=== PATIENT | female | born 1945 | race Caucasian/White ===

== ENCOUNTER → 2016-03-25 | Outpatient (CLI) | payer OTHER ==
[~2016-03-25] MED LIST: AMT50 PO; ASCO10003 PO; CALC-214; CETI10TA99; CHOL1CAP57 PO; CLR10 PO; FLUT0.15 NAE; GABA-113 PO; GADAVIST IV PRN; IPRA0.03; MOME1AER5 INH; MONT1TAB3 PO; MONT4GRA; MULTTAB58 PO; OMEG10007 PO; TAMO20TA47 PO; VITACAP37 PO
--- NOTE | 2016-03-25 15:29 | DIAGNOSTIC IMAGING REPORT ---
LEFT KNEE MRI with and without intravenous contrast HISTORY: Left peroneal nerve compression at fibular head. Pain down left foot. Twitching. Left KNEE, SOFT TISSUE MASS COMPARISON STUDY: None. TECHNIQUE: Multiplanar multisequence MRI of the left knee was performed according to standard department protocol without intravenous contrast. FINDINGS: Menisci: The lateral meniscus is intact. There is a horizontal tear through the body of the medial meniscus. Ligaments: The anterior and posterior cruciate ligaments are intact. The medial and lateral collateral ligaments are normal in appearance. Extensor mechanism: The quadriceps tendon and patellar ligament are intact. Articular cartilage and bone: Focal full-thickness cartilage loss along the inferior aspect of the lateral patellar facet and median ridge with associated subchondral cystic change. Mild cartilage thinning within the medial femoral condyle. No fracture or dislocation within the knee. Joint effusion: None. Soft tissues: No soft tissue masses identified. Specifically, there are no masses at the level of the fibular head. The visualized common peroneal nerve is normal in course, caliber, and signal intensity. Small focus of subcutaneous edema lateral to the level of the fibular head. No abnormal enhancement. IMPRESSION: 1. No masses within the left knee. Specifically, there are no masses compressing the common peroneal nerve. 2. Horizontal tear at the body of the medial meniscus. 3. Patellar chondromalacia as described above. Electronically signed by: Tavares Briones M.D. 03/25/2016 3:27 PM Dictated Date/Time: 03/25/2016 3:22 PM
== END | disposition home or self-care (01) ==
LOC: C.MRI 12:45
PROVIDERS: ATTEND Physical Medicine & Rehabilitation
DX: G57.32 Lesion of lateral popliteal nerve, left lower limb (principal); S83.242A Other tear of medial meniscus, current injury, left knee, initial encounter; X58.XXXA Exposure to other specified factors, initial encounter; M22.42 Chondromalacia patellae, left knee

== ENCOUNTER → 2016-03-29 | Outpatient (CLI) | payer OTHER ==
[~2016-03-29] MED LIST changes: -GADAVIST IV PRN
[2016-03-29 11:02] LABS: BASO % 0.5 %; BASO ABS # 0.03 K/uL (0-0.2); COMPLETE YES; EOS % 6.9 %; HEMATOCRIT 38.2 % (37-47); IG% 0.2 %; LYMPH % 38.3 %; LYMPH ABS # 2.33 K/uL (1.2-3.4); MEAN CELL VOLUME 91.4 fL (80-100); MEAN CORPUSCULAR HEMOGLOBIN 31.1 pg (25-34); MEAN PLATELET VOLUME 9.4 fL (7.4-10.4); MONO % 8.1 %; PLATELET COUNT 346 K/uL (130-400); RED BLOOD COUNT 4.18 M/uL (4.2-5.4); WHITE BLOOD COUNT 6.08 K/uL (4.8-10.8)
[2016-03-29 11:19] LABS: AST/SGOT 26 U/L (15-37); BLOOD UREA NITROGEN 15 mg/dl (7-18); CALCIUM 8.8 mg/dl (8.5-10.1); CARBON DIOXIDE 28 mmol/L (21-32); CHLORIDE 106 mmol/L (98-107); CHOLESTEROL 212 mg/dl (0-200); CREATININE 0.75 mg/dl (0.60-1.20); GLUCOSE 89 mg/dl (70-99); POTASSIUM 3.9 mmol/L (3.5-5.1); SODIUM 142 mmol/L (136-145)
[2016-03-29 11:27] LABS: ALKALINE PHOSPHATASE 42 U/L (45-117); ALT/SGPT 33 U/L (12-78); CHOLESTEROL/HDL RATIO 2.2; HDL CHOLESTEROL 97 mg/dl; LDL CHOLESTEROL CALCULATED 101 mg/dl; TRIGLYCERIDES 70 mg/dl (0-150); VERY LOW DENSITY LIPOPROT CALC 14 mg/dl
--- NOTE | 2016-04-02 11:03 | CODING QUERY MEDICAL NECESSITY ---
SUPPORTING DIAGNOSIS NEEDED Dr. Faustin, A supporting diagnosis is required for the test/procedure performed on this patient in order for us to be reimbursed by the patient's insurance. Please provide a supporting diagnosis for the following test/procedure listed below next to the test name along with your signature. *If there is no additional diagnosis for this patient that would support the following test/procedure please document that below next to the test/procedure. Test(s)/Procedure(s) that require a supporting diagnosis: * ([id number]) VITAMIN D ASSAY DIAGNOSIS: DATE OF SERVICE: 03/29/16 Provider Signature: Date: Thank you Rory Sandoval [facility] Information Management Once completed, please kindly fax back to [phone] For questions please call [phone]
== END | disposition home or self-care (01) ==
LOC: C.LABBC 07:37
PROVIDERS: ATTEND Internal Medicine
DX: R91.1 Solitary pulmonary nodule (principal)

== ENCOUNTER → 2016-04-18 | Outpatient (CLI) | payer OTHER ==
--- NOTE | 2016-04-18 16:07 | DIAGNOSTIC IMAGING REPORT ---
MRI OF THE LUMBAR SPINE WITHOUT IV CONTRAST CLINICAL HISTORY: Left leg pain. Radiculopathy. COMPARISON STUDY: No priors. TECHNIQUE: MRI of the lumbar spine is performed utilizing various T1 and T2 sequences in the axial and sagittal planes. IV contrast was not administered for this examination. FINDINGS: Lumbar spine: Vertebral body height is maintained throughout the lumbar spine. Minimal retrolisthesis is noted at L3-L4. Alignment is otherwise preserved. There is straightening of the lumbar lordosis. Marrow signal intensity is heterogeneous. A small hemangioma is suspected in the body of L4. The transverse and spinous processes are grossly intact. There is no evidence of spondylolysis. Small anterior osteophytes are seen throughout. Chronic degenerative endplate change is present at most levels. Degenerative endplate edema is seen at L3-L4 and L4-L5. Intervertebral discs: Moderate degenerative disc desiccation and loss of height is seen throughout the lumbar spine. Spinal cord: The visualized spinal cord is normal in morphology and signal intensity. The conus medullaris terminates at the level of L1. The nerve roots of the cauda equina are normal in morphology. L1-L2: There is minimal posterior disc bulge. The central canal and neural foramina are patent. L2-L3: There is posterior disc bulge. There is no significant acquired compromise of the central canal. Facet arthropathy causes mild left-sided neural foraminal stenosis. L3-L4: There is posterior disc bulge. In conjunction with hypertrophy of the ligamentum flavum, there is minimal acquired compromise of the central canal. The minimum AP canal diameter measures up to 10 mm. There is bilateral subarticular stenosis, left greater than right. This may impinge on the exiting left L3 nerve root. Facet arthropathy causes minimal left-sided neural foraminal narrowing. L4-L5: There is posterior disc bulge. No significant central canal stenosis is seen at this level. There is bilateral subarticular stenosis, with possible impingement on the exiting bilateral L4 nerve roots. This also likely abuts the transiting bilateral L5 nerve roots. Facet arthropathy is of no consequence. There is a left-sided facet joint effusion. L5-S1: The central canal is patent. Facet arthropathy causes mild bilateral neural foraminal stenosis. Sacrum: Visualized sacrum is normal in morphology and signal intensity. Soft tissues: There is mild fatty atrophy of the paraspinous musculature. The partially imaged retroperitoneal structures are grossly unremarkable, but incompletely assessed. IMPRESSION: 1. Degenerative disc disease as above with degenerative endplate edema at L3-L4 and L4-L5. 2. Multilevel lumbosacral spondylosis as detailed above. There is only minimal acquired compromise of the central canal at L3-L4. See discussion for detailed level by level analysis. 3. No destructive bony lesion is suspected. Dictated: 04/18/2016 3:44 PM Transcribed: 04/18/2016 4:06 PM EDITH_Ori Electronically signed by: Jean Pierre Bauman M.D. 04/18/2016 4:10 PM Dictated Date/Time: 04/18/2016 3:44 PM
== END | disposition home or self-care (01) ==
LOC: C.MRIBC 14:50
PROVIDERS: ATTEND Physical Medicine & Rehabilitation
DX: G57.32 Lesion of lateral popliteal nerve, left lower limb (principal); M51.36 Other intervertebral disc degeneration, lumbar region; M47.817 Spondylosis without myelopathy or radiculopathy, lumbosacral region

== ENCOUNTER → 2016-08-16 | Outpatient (CLI) | payer OTHER ==
[~2016-08-16] MED LIST changes: -AMT50 PO; -CETI10TA99; -CLR10 PO; -MONT4GRA
--- NOTE | 2016-08-16 09:02 | DIAGNOSTIC IMAGING REPORT ---
(CHEST) THORAX WITHOUT HISTORY:71 [id number] Pulmonary nodule,. History of right breast cancer. COMPARISON: Chest CT 10/18/2015, CT 07/31/2012, 06/09/2012 TECHNIQUE: Multiple axial CT images of the chest were obtained without contrast. FINDINGS: No focal dominant thyroid nodule. No pathologic adenopathy about the chest is identified. The heart appears unremarkable. There is no pneumothorax, pleural effusion or new focal airspace consolidation. There is minimal subsegmental atelectasis/scarring of the right lung base. Subtle focal 7 x 6 mm groundglass nodule of the anterior segment right upper lobe is again seen on image 16 of the axial series, which in retrospect is unchanged dating back to 06/09/2012. No new or suspicious solid or subsolid pulmonary nodules are identified. Central airways are patent. The upper abdominal structures appear unremarkable. The soft tissues are within normal limits. No suspicious bony lesions identified. IMPRESSION: 1. Unchanged sub-solid pulmonary nodule of the anterior segment right upper lobe, 7 mm. In retrospect, this is unchanged dating back to CT study dated 06/09/2012. According to the Fleischner guidelines below, additional follow-up exam in one year will confirm stability over a five-year period. 2. No additional new or suspicious pulmonary nodules. 3. No adenopathy. Please refer to below summary of Fleischner criteria recommendations for follow-up of incidental CT nodules (Mert Magdaleno, Guidelines for management of small pulmonary nodules detected on CT scans: A statement from the Fleischner Society, Radiology 237: [phone].) Note: newly detected indeterminate nodule in persons 35 years of age or older. * Low risk patients: minimal or absent history of smoking and/or other known risk factors * high risk patients: history of smoking or of other known risk factors (e.g. first degree relative with lung cancer, or exposure to asbestos, radon, uranium) * if a nodule up to 8 mm is partly solid or is ground glass further follow-up is required after 24 months to exclude possible slow growing adenocarcinoma (SHARDA) SUBSOLID NODULES Solitary pure ground-glass nodule * nodule size <6 mm - no CT follow-up required * nodule size >=6 mm - follow-up CT at 6-12 months, then every 2 years until 5 years The above report was generated using voice recognition software. It may contain grammatical, syntax or spelling errors. Electronically signed by: Josh Fairbanks 08/16/2016 9:01 AM Dictated Date/Time: 08/16/2016 8:52 AM
== END | disposition home or self-care (01) ==
LOC: C.CTS 08:38
PROVIDERS: ATTEND Internal Medicine Critical Care Medicine
DX: R91.1 Solitary pulmonary nodule (principal)

== ENCOUNTER → 2017-03-29 | Outpatient (CLI) | payer OTHER ==
[~2017-03-29] MED LIST changes: -TAMO20TA47 PO; +TAMO20TA9 PO
[2017-03-29 09:02] LABS: BASO % 0.7 %; BASO ABS # 0.03 K/uL (0-0.2); EOS % 6.2 %; EOS ABS # 0.27 K/uL (0-0.5); HEMATOCRIT 37.4 % (37-47); HEMOGLOBIN 12.6 g/dL (12.0-16.0); IG# 0.01 K/uL (0.00-0.02); LYMPH % 47.2 %; LYMPH ABS # 2.06 K/uL (1.2-3.4); MEAN CORPUSCULAR HEMOGLOBIN 31.3 pg (25-34); MEAN CORPUSCULAR HGB CONC 33.7 g/dl (32-36); MEAN PLATELET VOLUME 9.5 fL (7.4-10.4); MONO % 10.8 %; MONO ABS # 0.47 K/uL (0.11-0.59); NEUT % 34.9 %; NEUT ABS # 1.52 K/uL (1.4-6.5); PLATELET COUNT 272 K/uL (130-400); RED CELL DISTRIBUTION WIDTH CV 13.9 % (11.5-14.5); RED CELL DISTRIBUTION WIDTH SD 47.6 fL (36.4-46.3); WHITE BLOOD COUNT 4.36 K/uL (4.8-10.8)
[2017-03-29 09:41] LABS: ALBUMIN 3.6 gm/dl (3.4-5.0); ALT/SGPT 39 U/L (12-78); AST/SGOT 28 U/L (15-37); BLOOD UREA NITROGEN 15 mg/dl (7-18); CALCIUM 8.6 mg/dl (8.5-10.1); CARBON DIOXIDE 30 mmol/L (21-32); CHOLESTEROL 190 mg/dl (0-200); CREATININE 0.74 mg/dl (0.60-1.20); GLUCOSE 83 mg/dl (70-99); POTASSIUM 3.9 mmol/L (3.5-5.1); SODIUM 143 mmol/L (136-145)
[2017-03-29 09:49] LABS: ALKALINE PHOSPHATASE 40 U/L (45-117); LDL CHOLESTEROL CALCULATED 93 mg/dl
== END | disposition home or self-care (01) ==
LOC: C.LAB 08:10
PROVIDERS: ATTEND Internal Medicine
DX: M85.80 Other specified disorders of bone density and structure, unspecified site (principal); D72.819 Decreased white blood cell count, unspecified; C50.219 Malignant neoplasm of upper-inner quadrant of unspecified female breast; R91.1 Solitary pulmonary nodule; E55.9 Vitamin D deficiency, unspecified

== ENCOUNTER → 2017-04-07 | Outpatient (CLI) | payer OTHER ==
--- NOTE | 2017-04-07 16:10 | DIAGNOSTIC IMAGING REPORT ---
(CHEST) THORAX WITHOUT CLINICAL HISTORY: Pulmonary nodule COMPARISON STUDY: 08/16/2016 CT DOSE: 211.94 mGy.cm TECHNIQUE: CT of the thorax was performed from the thoracic inlet to the lung bases. Images are reviewed in the axial, sagittal, and coronal planes. IV contrast was not administered for this examination. A dose lowering technique was utilized adhering to the principles of ALARA. FINDINGS: Thyroid: Imaged portions of the thyroid gland are normal in appearance. Thoracic aorta: The thoracic aorta is normal in course and caliber, noting standard 3 vessel arch anatomy. Heart: The heart is normal in size and configuration, without pericardial effusion. Lungs and pleural spaces: No pleural effusions are visualized. There is a stable 7 mm groundglass right upper lobe pulmonary nodule as visualized in image #[id number]. Also evident is a stable 3 mm mixed solid and groundglass left apical pulmonary nodule as visualized on image #[id number] Mediastinum: There is no mediastinal lymphadenopathy. Uyen: Clear. Axilla: Clear. Upper abdomen: Partially visualized upper abdominal viscera is within normal limits. Skeletal structures: There are no lytic or blastic osseous lesions. IMPRESSION: 1. Stable 7 mm groundglass right upper lobe pulmonary nodule 2. No evidence of pathologic adenopathy Electronically signed by: Omid Martines M.D. 04/07/2017 4:09 PM Dictated Date/Time: 04/07/2017 4:05 PM
== END | disposition home or self-care (01) ==
LOC: C.CTS 15:55
PROVIDERS: ATTEND Internal Medicine
DX: R91.1 Solitary pulmonary nodule (principal)

== ENCOUNTER → 2017-04-17 | Outpatient (CLI) | payer OTHER | END | disposition home or self-care (01) | LOC: C.PAPS 14:20 | PROVIDERS: ATTEND Obstetrics & Gynecology | DX: Z01.419 Encounter for gynecological examination (general) (routine) without abnormal findings (principal) ==

== ENCOUNTER 2022-07-18 22:29 | Inpatient (IN) ==
[2022-07-18] MEDS ORDERED: SODIUM CHLORIDE 0.9% 500 ML IV STA (22:44)
[2022-07-18] MEDS ORDERED: ONDANSETRON INJ 2 MG/ML 2 ML VIAL IV STA (22:44)
--- NOTE | 2022-07-18 22:46 | Emergency Department Note ---
Impression & Plan SBO (small bowel obstruction) ADMIT ED Provider Note HPI: The patient is a 76-year-old female who presents emergency department chief complaint of nausea and vomiting as well as abdominal pain that began around 4 PM today. Patient states she went out to lunch with a friend at the [employer], states that she had a positive and then began to feel nauseous later after lunch. She states she has had multiple episodes of vomiting throughout the afternoon since this started, denies any diarrhea, patient denies any chest pain or shortness of breath. Patient states she did have an EGD performed about a week ago that was remarkable for gastritis but otherwise was uncomplicated, she states she had this done because she felt as if she was having some issues swallowing her food. On arrival here to the ED the patient is alert, she seems to be in mild distress secondary to nausea but otherwise is hemodynamically stable and saturating well on room air. ROS: - Per HPI *Outpatient medications and allergy history reviewed. *Pertinent external medical records reviewed. PE: General: Alert HEENT: Normocephalic, trachea midline Eyes: Extraocular eye movement is intact, no scleral erythema Pulmonary: Clear to auscultation bilaterally, no wheezing Cardio: Regular rate and rhythm GI: Abdomen is soft to palpation, there is moderate tenderness diffusely to palpation : No suprapubic tenderness MSK: No evidence of trauma or malformation of the extremities, no edema Skin: No evidence of rash Neuro: Alert, no focal deficits Psychiatric: Cooperative monitor and storage bin tender: (As interpreted by myself): - An order was placed for continuous cardiac monitoring - Patient was noted to be in sinus rhythm with a rate of 90 EKG: (As interpreted by myself): Rate: 97 Rhythm: Normal sinus rhythm Intervals: QTc 510, otherwise within normal limits ST changes: No ST elevation Time: 2254 Interventions provided in ED: -IV fluid bolus, IV morphine, IV Zofran, IV Reglan, IV Benadryl Differential Diagnosis: Viral gastroenteritis, small bowel obstruction, acute cholecystitis, acute appendicitis, diverticulitis flare, perforated viscus, amongst other potential pathologies. Medical Decision Making: Patient presented to the emergency department with abdominal pain as well as nausea and vomiting that began at around 4 PM today. On arrival here to the ED the patient is hemodynamically stable but does appear to be in mild distress secondary to abdominal discomfort and nausea. IV was established and lab work obtained, patient was given IV fluids as well as IV Zofran, IV Reglan, IV Benadryl, and IV morphine for pain. Lab work shows no leukocytosis, hemoglobin is stable at 13.6, platelet count is within normal limits at 301, CMP was obtained that does show evidence of reduced serum bicarbonate level at 17, potassium is within normal limits, no acute kidney injury, no transaminitis, bilirubin is normal, troponin is also negative. EKG shows normal sinus rhythm without any ischemic changes. CT imaging of the abdomen pelvis was obtained with IV contrast that shows evidence of small bowel obstruction with transition point somewhere in the right upper quadrant/ileum following my discussion with on-call radiology, Dr. Workman. Given that the patient has had frequent nausea with dry heaving decision was made to place NG tube. NG tube was placed by bedside RN, x-ray imaging obtained following NG tube placement and NG tube does appear to be in appropriate position in the stomach (per my interpretation). Case was discussed with on-call general surgery, Dr. Garner, via [place] [facility]. He is in agreement for admission here and consultation to evaluate the patient in the morning given her hemodynamic stability. [facility] hospitalist service was consulted for admission, Dr. Woodard aware. Case was also discussed with the on-call resident. Patient was placed for admission in stable condition. Consultants: - Dr. Garner, General Surgery - Dr. Woodard, Hospitalist Disposition discussion held by myself with: Patient and daughter at the bedside Diagnosis: 1. Small bowel obstruction, acute 2. Nausea and vomiting, acute 3. Metabolic acidosis/dehydration Disposition: Admission Tony Hendrix DO Emergency Medicine Past Med/Surg History Medical History (Updated 07/19/22 @ 01:45 by Tony Hendrix DO) Acute solar dermatitis Allergic rhinitis Alveolar emphysema of lung DAILY AND PRN INH Chronic cough Colon polyps HX Complaints of leg weakness UNDER CONTROL-ON GABAPENTIN COPD with emphysema Dysphagia "VERY OCCASIONAL" ETD (eustachian tube dysfunction) High serum high density lipoprotein (HDL) History of COVID-19 BEGINNING 04/2022, HOME TEST, NOT HOSP; MILD>RESOLVED. History of right breast cancer diagnosed 2013--sx/radiation Leukopenia Low back pain Malignant neoplasm of upper-inner quadrant of female breast RT BREAST 2013; LEFT BREAST 2021 Multiple pulmonary nodules Osteopenia after menopause Pain of lower extremity UNDER CONTROL W/GABAPENTING Post-nasal drip Pulmonary nodule, right Seasonal allergies Spinal stenosis Upper airway cough syndrome Vitamin D deficiency Surgical History (Updated 06/24/22 @ 11:38 by Libra Chang) History of bronchoscopy History of colonoscopy with polypectomy History of lumpectomy of left breast 2021; SX AND 1 MONTH OF RADIATION History of lumpectomy of right breast History of tooth extraction History of tubal ligation History of wisdom tooth extraction Family History Mother Bone cancer Parkinson disease Multiple myeloma Aunt Breast cancer Sister Breast cancer History of thyroid disorder Pancreatic cancer Daughter Bipolar disorder Father Family history of diabetes mellitus Grandmother (Maternal) Family history of esophageal cancer Brother Prostate cancer Lung cancer Sister Cancer Brother Cancer Other Asthma Diabetes No family history of adverse response to anesthesia No family history of bleeding disorder Denies family history of Tuberculosis Ovarian cancer Heart disease Allergies Myocardial infarction Emphysema, unspecified Colorectal cancer Lung disease Stroke Social History Smoking Status: Former smoker Tobacco Type: Cigarettes Age Quit Using Tobacco: 27; Cigarettes Per Day: 3; Second Hand Exposure: Yes (HX IN THE WORKPLACE); Do You Dip or Chew Tobacco: No; Hx Alcohol Use: Yes Alcohol type: hard liquor Alcohol Intake Frequency: 4 or More x per/Week Alcohol Intake Frequency Comment: every day Hx Substance Use: No Preferred Language: Haitian Communication Ability: Effective Visual Impairment: Limited Hearing Ability: Normal Crushed Stone Grader Required: No Beliefs That Will Affect Care: None marital status: Current Living Situation: Spouse current occupational status: retired How many Children do You have: 2 Feels Safe at Home: Yes Childhood Exposure to Second-Hand Smoke: No Diet: regular caffeine: Yes (tea ) during the past year weight has: remained stable Dental Care, Regularly: Yes Physical Activity Frequency: 5-6 Times per Week Seatbelt Use: always Sunscreen Use: Yes Assistive Devices: None Allergies Allergies Allergy/AdvReac Type Severity Reaction Status Date / Time benzonatate Allergy Severe Difficulty Verified 07/01/22 10:28 swallowing phenylephrine Allergy Mild Nausea Verified 07/01/22 10:28 codeine [From Robitussin A-C] Allergy Unknown Unknown Verified 07/01/22 10:28 phenylpropanolamine Allergy Unknown Unknown Verified 07/01/22 10:28 [From Lynette GONZALEZ] house dust Allergy Verified 07/01/22 10:28 mold Allergy Verified 07/01/22 10:28 doxycycline AdvReac Mild GI SYMPTOMS Verified 07/01/22 10:28 guaifenesin AdvReac Mild GI SYMPTOMS Verified 07/01/22 10:28 hydrocodone AdvReac Mild GI SYMPTOMS Verified 07/01/22 10:28 Home Meds Home Medications Medication Instructions Recorded Confirmed anastrozole 1 mg tablet 1 mg PO QPM 09/04/21 07/01/22 chlorpheniramine-dextromethorphan 2 - 3 tab PO Q6H PRN NASAL DRIP 12/10/21 07/01/22 4 mg-30 mg tablet cyanocobalamin (vitamin B-12) 1,000 mcg PO QAM 04/24/22 07/01/22 1,000 mcg capsule fluocinonide 0.05 % topical gel 1 applic topical BID PRN MOUTH 04/24/22 07/01/22 ULCERS Previous Rx's Medication Instructions Recorded triamcinolone acetonide 0.1 % 1 applic topical DAILY PRN 02/25/20 topical cream dermatitis #30 grams inhaler,assist devices,access #1 ea 06/23/20 Symbicort 160 mcg-4.5 2 puff inhalation BID #3 Inhalers 02/18/22 mcg/actuation HFA aerosol inhaler (budesonide-formoterol) albuterol sulfate 90 mcg/actuation 2 puff inhalation Q6H PRN 02/18/22 aerosol inhaler Shortness Of Breath Or Wheezing 90 days #3 Inhalers gabapentin 300 mg capsule 300 mg PO HS #90 caps 04/24/22 ipratropium bromide 42 mcg (0.06 2 spray intranasal BID 90 days #3 05/17/22 %) nasal spray ea pantoprazole 40 mg tablet,delayed 40 mg PO BID #60 tabs 07/01/22 release Results & Data (ED) Vital Signs Vital Signs - 24 hr 07/18/22 22:39 07/18/22 23:01 07/18/22 23:30 Pulse Rate 99 H 93 H 95 H Pulse Rate from SpO2 Sensor Pulse Rhythm Regular Pulse Strength Normal Respiratory Rate 22 20 30 H Respiratory Effort / Characteristics Non-Labored Spontaneous Respiratory Depth Normal Respiratory Pattern Regular Blood Pressure 189/106 H 194/93 H 165/108 H Blood Pressure Mean 133 120 142 Blood Pressure Position Lying Pulse Oximetry 100 100 90 Oxygen Delivery Method Room Air Room Air Room Air Sepsis Recent Fever Within 48 Hours No Sepsis New/Unexplained Change in Mental Status N/A Sepsis Action Taken by Nursing No Action Required 07/19/22 00:09 07/19/22 01:00 Pulse Rate 95 H 90 Pulse Rate from SpO2 Sensor 88 Pulse Rhythm Pulse Strength Respiratory Rate 27 H 29 H Respiratory Effort / Characteristics Respiratory Depth Respiratory Pattern Blood Pressure 178/121 H 175/96 H Blood Pressure Mean 167 122 Blood Pressure Position Pulse Oximetry 100 91 Oxygen Delivery Method Room Air Room Air Sepsis Recent Fever Within 48 Hours Sepsis New/Unexplained Change in Mental Status Sepsis Action Taken by Nursing Laboratory Data 07/18/22 22:49 07/18/22 22:49 Lab Results 07/18/22 07/18/22 07/18/22 Range/Units 22:49 22:49 22:49 WBC 8.51 (4.8-10.8) K/ul RBC 4.22 (4.20-5.40) M/uL Hgb 13.6 (12.0-16.0) g/dl Hct 39.5 (37.0-47.0) % MCV 93.6 (80.0-100.0) fL MCH 32.2 (25.0-34.0) pg MCHC 34.4 (32.0-36.0) g/dL RDW Std Deviation 44.4 (36.4-46.3) fL RDW Coeff of Belle 12.9 (11.5-14.5) % Plt Count 301 (130-400) K/uL MPV 9.6 (9.4-12.4) fL Immature Gran % (Auto) 0.4 % Neut % (Auto) 77.5 % Lymph % (Auto) 16.7 % [place] % (Auto) 4.8 % Eos % (Auto) 0.2 % Baso % (Auto) 0.4 % Neut # (Auto) 6.60 H (1.40-6.50) K/uL Lymph # (Auto) 1.42 (1.2-3.4) K/uL [place] # (Auto) 0.41 (0.11-0.59) K/uL Eos # (Auto) 0.02 (0-0.50) K/uL Baso # (Auto) 0.03 (0-0.2) K/uL Immature Gran # (Auto) 0.03 (0.01-0.20) K/uL PT 10.4 (9.0-12.0) Seconds INR 0.9 (0.9-1.1) Sodium 137 (136-145) mmol/L Potassium 3.8 (3.5-5.1) mmol/L Chloride 103 (98-107) mmol/L Carbon Dioxide 17 L (21-32) mmol/L Anion Gap 17 H (3-11) BUN 16 (6-23) mg/dl Creatinine 0.70 (0.6-1.2) mg/dl Est Cr Clr Drug Dosing 55.8 ml/min Est GFR ( Amer) 98.9 ml/min Est GFR (Non-Af Amer) 85.4 ml/min BUN/Creatinine Ratio 22.9 H (10-20) Glucose 170 H (70-99(Fasting)) mg/dl Calcium 9.4 (8.6-10.3) mg/dl Total Bilirubin 0.7 (0.2-1.0) mg/dl AST 30 (13-39) U/L ALT 24 (7-52) U/L Alkaline Phosphatase 49 (34-104) U/L Troponin I High Sens 5.0 (0-14) pg/ml Total Protein 7.4 (6.0-8.3) gm/dl Albumin 4.5 (3.4-5.0) gm/dl Globulin 2.9 (2.5-4.0) gm/dl Albumin/Globulin Ratio 1.6 (0.9-2) Lipase 8 L (11-82) U/L SARS-CoV-2, RNA, NAAT (NEGATIVE) 07/19/22 Range/Units 01:57 WBC (4.8-10.8) K/ul RBC (4.20-5.40) M/uL Hgb (12.0-16.0) g/dl Hct (37.0-47.0) % MCV (80.0-100.0) fL MCH (25.0-34.0) pg MCHC (32.0-36.0) g/dL RDW Std Deviation (36.4-46.3) fL RDW Coeff of Belle (11.5-14.5) % Plt Count (130-400) K/uL MPV (9.4-12.4) fL Immature Gran % (Auto) % Neut % (Auto) % Lymph % (Auto) % [place] % (Auto) % Eos % (Auto) % Baso % (Auto) % Neut # (Auto) (1.40-6.50) K/uL Lymph # (Auto) (1.2-3.4) K/uL [place] # (Auto) (0.11-0.59) K/uL Eos # (Auto) (0-0.50) K/uL Baso # (Auto) (0-0.2) K/uL Immature Gran # (Auto) (0.01-0.20) K/uL PT (9.0-12.0) Seconds INR (0.9-1.1) Sodium (136-145) mmol/L Potassium (3.5-5.1) mmol/L Chloride (98-107) mmol/L Carbon Dioxide (21-32) mmol/L Anion Gap (3-11) BUN (6-23) mg/dl Creatinine (0.6-1.2) mg/dl Est Cr Clr Drug Dosing ml/min Est GFR ( Amer) ml/min Est GFR (Non-Af Amer) ml/min BUN/Creatinine Ratio (10-20) Glucose (70-99(Fasting)) mg/dl Calcium (8.6-10.3) mg/dl Total Bilirubin (0.2-1.0) mg/dl AST (13-39) U/L ALT (7-52) U/L Alkaline Phosphatase (34-104) U/L Troponin I High Sens (0-14) pg/ml Total Protein (6.0-8.3) gm/dl Albumin (3.4-5.0) gm/dl Globulin (2.5-4.0) gm/dl Albumin/Globulin Ratio (0.9-2) Lipase (11-82) U/L SARS-CoV-2, RNA, NAAT NEGATIVE (NEGATIVE) Administered Medications Discontinued Medications Diphenhydramine HCl (Diphenhydramine 50 Mg/Ml Vial) 25 mg IV NOW STA Stop: 07/18/22 23:47 Last Admin: 07/19/22 00:05 Dose: 25 mg Documented By: DML Sodium Chloride (Nss) 500 mls @ 999 mls/hr IV .Q31M STA Stop: 07/18/22 23:14 Last Infusion: 07/18/22 23:21 Dose: 0 mls/hr Documented By: Admin: 07/18/22 22:50 Dose: 999 mls/hr Documented By: MO Ioversol (Optiray 320 500ml) 90 ml IV ONCE ONE Stop: 07/18/22 23:57 Last Admin: 07/18/22 23:57 Dose: 90 ml Documented By: MOHIT Metoclopramide HCl (Metoclopramide Hcl Inj 5 Mg/Ml 2 Ml Vial) 10 mg IV NOW STA Stop: 07/18/22 23:47 Last Admin: 07/19/22 00:06 Dose: 10 mg Documented By: SETH Morphine Sulfate (Morphine Sulfate 4 Mg/Ml 1 Ml Carp\\Vial) 4 mg IV NOW STA Stop: 07/19/22 01:43 Last Admin: 07/19/22 01:44 Dose: 4 mg Documented By: RENETTA Ondansetron HCl (Ondansetron Inj 2 Mg/Ml 2 Ml Vial) 4 mg IV NOW STA Stop: 07/18/22 22:45 Last Admin: 07/18/22 22:50 Dose: 4 mg Documented By: MO Imaging Data Radiologist's Impression: Abdomen/Pelvis CT 07/18/22 22:44 CR Exam(s): CT ABDOMEN + PELVIS With Contrast IV Amt: 90ml optiray 320 EXAM: CT Abdomen and Pelvis With Intravenous Contrast CLINICAL HISTORY: Reason for exam: N/V , diffuse abd pain. TECHNIQUE: Axial computed tomography images of the abdomen and pelvis with intravenous contrast. CTDI is 11.45 mGy and DLP is 474.49 mGy-cm. Automated exposure control was utilized for the study. A dose lowering technique was utilized adhering to the principles of ALARA. CONTRAST: Patient received 90ml optiray 320 of IV contrast COMPARISON: 04/06/2022 FINDINGS: Lung bases: Unremarkable. No mass. No consolidation. ABDOMEN: Liver: Unremarkable. No mass. Gallbladder and bile ducts: Unremarkable. No calcified stones. No ductal dilation. Pancreas: Unremarkable. No mass. No ductal dilation. Spleen: Unremarkable. No splenomegaly. Adrenals: Unremarkable. No mass. Kidneys and ureters: Unremarkable. No solid mass. No hydronephrosis. Stomach and bowel: Small bowel obstruction with dilated fluid-filled small bowel loops with transition zone in the right upper quadrant secondary to a small bowel volvulus. No mucosal thickening. PELVIS: Appendix: No findings to suggest acute appendicitis. Bladder: Unremarkable. No mass. Reproductive: Unremarkable as visualized. ABDOMEN and PELVIS: Intraperitoneal space: Unremarkable. No free air. No significant fluid collection. Bones/joints: No acute fracture. No dislocation. Soft tissues: Unremarkable. Vasculature: Unremarkable. No abdominal aortic aneurysm. Lymph nodes: Unremarkable. No enlarged lymph nodes. IMPRESSION: Small bowel obstruction with dilated fluid-filled small bowel loops with transition zone in the right upper quadrant secondary to a small bowel volvulus. Communications: Call Doctor Volvulus Electronically signed by: Eugene Workman M.D. 07/19/22 01:23 AM Discharge Plan Visit Data Chief Complaint: Nausea Stated Complaint: ABDOMINAL PAIN/NAUSEA/VOMITING/CHILLS ED Provider: Tony Hendrix Discharge Problem: SBO (small bowel obstruction) Forms Stand Alone Forms: [facility] Prescriptions Prescriptions: No Action triamcinolone acetonide 0.1 % cream 1 applic TOP DAILY PRN (Reason: dermatitis) Qty: 30 1RF albuterol sulfate 90 mcg/actuation HFA aerosol inhaler 2 puff inhalation Q6H PRN (Reason: Shortness Of Breath Or Wheezing) 90 Days Qty: 3 3RF budesonide-formoterol [Symbicort] 160-4.5 mcg/actuation HFA aerosol inhaler 2 puff inhalation BID Qty: 3 3RF Rx Instructions: WITH A RINSE OF MOUTH AFTERWARDS. ipratropium bromide 42 mcg (0.06 %) spray,non-aerosol 2 spray INTRANASAL BID 90 Days Qty: 3 3RF fluocinonide 0.05 % gel 1 applic topical BID PRN (Reason: MOUTH ULCERS) cyanocobalamin (vitamin B-12) 1,000 mcg capsule 1,000 mcg PO QAM gabapentin 300 mg capsule 300 mg PO HS Qty: 90 3RF anastrozole 1 mg tablet 1 mg PO QPM (DME) inhaler,assist devices,access Device See Rx Instructions .MEDSUPPLY Qty: 1 0RF Rx Instructions: spacer for HFA, As directed chlorpheniramine-dextromethorp 4-30 mg tablet 2 - 3 tab PO Q6H PRN (Reason: NASAL DRIP) pantoprazole 40 mg tablet,delayed release (DR/EC) 40 mg PO BID Qty: 60 5RF Referrals Referrals: Deangelo Faustin MD [Primary Care Provider] -
[2022-07-18 23:12] LABS: Basophils # (auto) 0.03 K/uL (0-0.2); Basophils % (auto) 0.4 %; Eosinophils # (auto) 0.02 K/uL (0-0.50); Eosinophils % (auto) 0.2 %; Hematocrit (blood only) 39.5 % (37.0-47.0); Hemoglobin 13.6 g/dl (12.0-16.0); Immature Granulocytes # (auto) 0.03 K/uL (0.01-0.20); Immature Granulocytes % (auto) 0.4 %; Lymphocytes # (auto) 1.42 K/uL (1.2-3.4); Lymphocytes % (auto) 16.7 %; Mean Corpuscular Hemoglobin 32.2 pg (25.0-34.0); Mean Corpuscular Hgb Conc 34.4 g/dL (32.0-36.0); Mean Corpuscular Volume 93.6 fL (80.0-100.0); Mean Platelet Volume 9.6 fL (9.4-12.4); Monocytes # (auto) 0.41 K/uL (0.11-0.59); Monocytes % (auto) 4.8 %; Neutrophils % (auto) 77.5 %; Platelet Count 301 K/uL (130-400); RDW Coefficient of Variation 12.9 % (11.5-14.5); RDW Standard Deviation 44.4 fL (36.4-46.3); Red Blood Count 4.22 M/uL (4.20-5.40); White Blood Count 8.51 K/ul (4.8-10.8)
[2022-07-18 23:29] LABS: Albumin Globulin Ratio 1.6 (0.9-2); Albumin Level 4.5 gm/dl (3.4-5.0); BUN Creatinine Ratio 22.9 (10-20); Bilirubin,Total 0.7 mg/dl (0.2-1.0); Calcium 9.4 mg/dl (8.6-10.3); Creatinine Clr Calc Pharmacy 55.8 ml/min; Est GFR (African American) 98.9 ml/min; Est GFR (Non-African American) 85.4 ml/min; Globulin 2.9 gm/dl (2.5-4.0); Potassium 3.8 mmol/L (3.5-5.1); Total Protein 7.4 gm/dl (6.0-8.3)
[2022-07-18 23:39] LABS: INR 0.9 (0.9-1.1); Prothrombin Time 10.4 Seconds (9.0-12.0)
[2022-07-18] MEDS ORDERED: METOCLOPRAMIDE HCL INJ 5 MG/ML 2 ML VIAL IV STA (23:46)
[2022-07-18] MEDS ORDERED: diphenhydrAMINE 50 MG/ML VIAL IV STA (23:46)
[2022-07-18] MEDS ORDERED: OPTIRAY 320 500ml IV ONE (23:56)
--- NOTE | 2022-07-19 01:24 | CT Scan Report ---
Exam(s): CT ABDOMEN + PELVIS With Contrast IV Amt: 90ml optiray 320 EXAM: CT Abdomen and Pelvis With Intravenous Contrast CLINICAL HISTORY: Reason for exam: N/V , diffuse abd pain. TECHNIQUE: Axial computed tomography images of the abdomen and pelvis with intravenous contrast. CTDI is 11.45 mGy and DLP is 474.49 mGy-cm. Automated exposure control was utilized for the study. A dose lowering technique was utilized adhering to the principles of ALARA. CONTRAST: Patient received 90ml optiray 320 of IV contrast COMPARISON: 04/06/2022 FINDINGS: Lung bases: Unremarkable. No mass. No consolidation. ABDOMEN: Liver: Unremarkable. No mass. Gallbladder and bile ducts: Unremarkable. No calcified stones. No ductal dilation. Pancreas: Unremarkable. No mass. No ductal dilation. Spleen: Unremarkable. No splenomegaly. Adrenals: Unremarkable. No mass. Kidneys and ureters: Unremarkable. No solid mass. No hydronephrosis. Stomach and bowel: Small bowel obstruction with dilated fluid-filled small bowel loops with transition zone in the right upper quadrant secondary to a small bowel volvulus. No mucosal thickening. PELVIS: Appendix: No findings to suggest acute appendicitis. Bladder: Unremarkable. No mass. Reproductive: Unremarkable as visualized. ABDOMEN and PELVIS: Intraperitoneal space: Unremarkable. No free air. No significant fluid collection. Bones/joints: No acute fracture. No dislocation. Soft tissues: Unremarkable. Vasculature: Unremarkable. No abdominal aortic aneurysm. Lymph nodes: Unremarkable. No enlarged lymph nodes. IMPRESSION: Small bowel obstruction with dilated fluid-filled small bowel loops with transition zone in the right upper quadrant secondary to a small bowel volvulus. Communications: Call Doctor Volvulus Electronically signed by: Eugene Workman M.D. 07/19/22 01:23 AM
[2022-07-19] MEDS ORDERED: MoRPHine SULFATE 4 MG/ML 1 ML CARP\\VIAL IV STA (01:42)
--- NOTE | 2022-07-19 02:22 | History & Physical Report ---
Date of Service July 19, 2022 Assessment & Plan (1) SBO (small bowel obstruction): Plan: Patient is a 76-year-old female who presented to the hospital for evaluation for nausea and vomiting. Patient found to have small bowel obstruction secondary to volvulus. Patient is currently comfortable and hemodynamically stabilized and has been admitted for bowel decompression and monitoring for resolution of symptoms. -Admit to [facility] -Surgery consulted, appreciate recommendations -NG tube placed and pulling small amount of fluid -IV Zofran as needed for nausea -N.p.o. status, may have ice chips -Morphine as needed for pain control, IV Tylenol also available -Hold home medications while n.p.o. -LR at 100 cc/h (2) Bilateral malignant neoplasm of breast in female: Plan: - History noted in chart review. -Diagnosis of right-sided breast cancer in 2012 status postlumpectomy followed by radiation therapy and 5 years of tamoxifen therapy -Diagnosis of left breast malignancy in July 2020. Status post partial mastectomy in 09/05/2020 with negative sentinel lymph node biopsy. Radiation therapy completed 11/20/2020. -Since June 2021 has been on anastrozole for suppression therapy. (3) Hyperlipidemia: Plan: - Noted in chart review, no home medications Plan Diet: N.p.o. with LR at 100 cc/h DVT prophylaxis: Lovenox Disposition: Admit to [facility] for surgical consultation and gastric decompression CODE STATUS: Full code History of Present Illness Chief Complaint: Vomiting Primary Care Provider: Deangelo Faustin MD Patient is a 76-year-old female who presented to the hospital for evaluation for nausea and vomiting. Apparently patient had sudden onset of nausea and vomiting at approximately 4 PM on 07/18/2022 after eating at [employer] for lunch. She was in normal health prior to this. She has had multiple episodes of vomiting since this started. No history of anything like this happening before. She has some recent dysphagia that had been evaluated by an EGD about a week ago that was only remarkable for gastritis but was otherwise normal. No hematemesis. Denies any nausea, vomiting, shortness of breath, chest pain, or headache. Currently, after receiving pain medication and nausea medication, patient feeling much better and is pain-free. Denies any complaints at this time. ED course: Patient was brought back to the ED and evaluated by one of our providers. Lab work was significant for a negative white blood cell count, and anion gap of 17, glucose of 170, lactate of 2.8, and patient is COVID-negative. CT of the abdomen and pelvis demonstrated a small bowel obstruction with dilated fluid-filled small bowel loops with transition zone in the right upper quadrant secondary to a small bowel volvulus. For this reason, the on-call general surgeon, Dr. Julio Garner, was consulted and recommended admission and they would see the patient in the morning. NG tube was placed by nursing for decompression and confirmed with KUB. The hospitalist service was then consulted for admission and medication management. Allergies Allergy/AdvReac Type Severity Reaction Status Date / Time benzonatate Allergy Severe Difficulty Verified 07/19/22 02:50 swallowing phenylephrine Allergy Mild Nausea Verified 07/19/22 02:50 codeine [From Robitussin A-C] Allergy Unknown Unknown Verified 07/19/22 02:50 phenylpropanolamine Allergy Unknown Unknown Verified 07/19/22 02:50 [From Entex LA] house dust Allergy Unknown Verified 07/19/22 02:50 mold Allergy Unknown Verified 07/19/22 02:50 doxycycline AdvReac Mild GI SYMPTOMS Verified 07/19/22 02:50 guaifenesin AdvReac Mild GI SYMPTOMS Verified 07/19/22 02:50 hydrocodone AdvReac Mild GI SYMPTOMS Verified 07/19/22 02:50 Home Medications Medication Instructions Recorded Confirmed Type triamcinolone acetonide 0.1 % 1 applic topical DAILY PRN 02/25/20 07/19/22 Rx topical cream dermatitis #30 grams anastrozole 1 mg tablet 1 mg PO QPM 09/04/21 07/19/22 History chlorpheniramine-dextromethorphan 2 - 3 tab PO Q6H PRN NASAL DRIP 12/10/21 07/19/22 History 4 mg-30 mg tablet Symbicort 160 mcg-4.5 2 puff inhalation BID #3 Inhalers 02/18/22 07/19/22 Rx mcg/actuation HFA aerosol inhaler (budesonide-formoterol) albuterol sulfate 90 mcg/actuation 2 puff inhalation Q6H PRN 02/18/22 07/19/22 Rx aerosol inhaler Shortness Of Breath Or Wheezing 90 days #3 Inhalers cyanocobalamin (vitamin B-12) 1,000 mcg PO QAM 04/24/22 07/19/22 History 1,000 mcg capsule fluocinonide 0.05 % topical gel 1 applic topical BID PRN MOUTH 04/24/22 07/19/22 History ULCERS gabapentin 300 mg capsule 300 mg PO HS #90 caps 04/24/22 07/19/22 Rx ipratropium bromide 42 mcg (0.06 2 spray intranasal BID 90 days #3 05/17/22 07/19/22 Rx %) nasal spray ea pantoprazole 40 mg tablet,delayed 40 mg PO BID #60 tabs 07/01/22 07/19/22 Rx release Past Med/Surg History Medical History (Updated 07/19/22 @ 18:14 by Ori Guerrero MD) Acute solar dermatitis Allergic rhinitis Alveolar emphysema of lung DAILY AND PRN INH Chronic cough Colon polyps HX Complaints of leg weakness UNDER CONTROL-ON GABAPENTIN COPD with emphysema Dysphagia "VERY OCCASIONAL" ETD (eustachian tube dysfunction) High serum high density lipoprotein (HDL) History of COVID-19 BEGINNING 04/2022, HOME TEST, NOT HOSP; MILD>RESOLVED. History of right breast cancer diagnosed 2013--sx/radiation Leukopenia Low back pain Malignant neoplasm of upper-inner quadrant of female breast RT BREAST 2013; LEFT BREAST 2021 Multiple pulmonary nodules Osteopenia after menopause Pain of lower extremity UNDER CONTROL W/GABAPENTING Post-nasal drip Pulmonary nodule, right Seasonal allergies Spinal stenosis Upper airway cough syndrome Vitamin D deficiency Surgical History (Updated 06/24/22 @ 11:38 by Libra Chang) History of bronchoscopy History of colonoscopy with polypectomy History of lumpectomy of left breast 2021; SX AND 1 MONTH OF RADIATION History of lumpectomy of right breast History of tooth extraction History of tubal ligation History of wisdom tooth extraction Family History Mother Bone cancer Parkinson disease Multiple myeloma Aunt Breast cancer Sister Breast cancer History of thyroid disorder Pancreatic cancer Daughter Bipolar disorder Father Family history of diabetes mellitus Grandmother (Maternal) Family history of esophageal cancer Brother Prostate cancer Lung cancer Sister Cancer Brother Cancer Other Asthma Diabetes No family history of adverse response to anesthesia No family history of bleeding disorder Denies family history of Tuberculosis Ovarian cancer Heart disease Allergies Myocardial infarction Emphysema, unspecified Colorectal cancer Lung disease Stroke Social History Smoking Status: Former smoker Tobacco Type: Cigarettes Age Quit Using Tobacco: 27; Cigarettes Per Day: 3; Second Hand Exposure: Yes (HX IN THE WORKPLACE); Do You Dip or Chew Tobacco: No; Hx Alcohol Use: Yes Alcohol type: wine Alcohol Intake Frequency: 4 or More x per/Week Alcohol Intake Frequency Comment: every day Hx Substance Use: No Preferred Language: Latvian Communication Ability: Effective Visual Impairment: Limited Hearing Ability: Normal Bridges Supervisor Required: No Beliefs That Will Affect Care: None marital status: Current Living Situation: Spouse current occupational status: retired How many Children do You have: 2 Other Information That Helps Us Care for You: No Feels Safe at Home: Yes Safety Concerns: Feels Safe At This Time Childhood Exposure to Second-Hand Smoke: No Diet: regular caffeine: Yes (tea ) during the past year weight has: remained stable Dental Care, Regularly: Yes Physical Activity Frequency: 5-6 Times per Week Seatbelt Use: always Sunscreen Use: Yes Assistive Devices: None Review of Systems Review of Systems: All systems reviewed & are unremarkable except as noted in HPI & below Physical Exam 2 Constitutional: WD/WN, vitals as above Eyes: + anicteric sclerae Neck: normal visual inspection Respiratory: normal respiratory effort, lungs clear to auscultation Cardiovascular: RRR, no murmur, no edema Gastrointestinal (Abdomen): Inspection/Auscultation: abdomen normal to inspection and + hypoactive bowel sounds; abdomen not distended Percussion/Palpation: abdomen soft; abdomen nontender Musculoskeletal: Head/Neck/Chest: normocephalic and head atraumatic Skin: no rashes, warm and dry Neurologic: moves all extremities Psychiatric: A+Ox3, euthymic affect Results & Data Results & Data Vital Signs (Past 12 Hours) Vital Signs Pulse Resp BP Pulse Ox O2 Del Method 07/19/22 01:00 90 29 H 175/96 H 91 Room Air 07/19/22 00:09 95 H 27 H 178/121 H 100 Room Air 07/18/22 23:30 95 H 30 H 165/108 H 90 Room Air 07/18/22 23:01 93 H 20 194/93 H 100 Room Air 07/18/22 22:39 99 H 22 189/106 H 100 Room Air Supervising Physician Co-Signing Physician Notes Attending addendum: I have physically seen this patient, have supervised the medical residents activities, and agree with the H&P unless as otherwise noted. Assessment and Plan: Small bowel obstruction- Transition zone right upper quadrant secondary to small bowel volvulus NPO IV fluids, LR at 100 mils per hour Zofran 4 mg IV every 6 hours as needed NG tube to low intermittent suction Acetaminophen 1 g IV every 8 hours as needed mild pain or fever Serial CBC with differential, chemistry profile and magnesium level Consult to general surgery, they are aware and will follow COPD- Continue Symbicort Albuterol HFA 2 puffs every 6 hours as needed Bilateral breast cancer- Resume anastrozole when able Remaining orders and notations as noted
[2022-07-19] MEDS ORDERED: ALBUTEROL HFA 8 GM INHALER INH PRN (03:37)
[2022-07-19] MEDS ORDERED: MoRPHine SULFATE 4 MG/ML 1 ML CARP\\VIAL IV PRN (03:37)
[2022-07-19] MEDS ORDERED: MoRPHine SULFATE 2 MG/ML CARP IV PRN (03:37)
[2022-07-19] MEDS: LACTATED RINGER'S 1,000 ML IV SCH ×3 (03:40→23:40)
[2022-07-19 04:39] LABS: Hematocrit (blood only) 35.6 % (37.0-47.0); Hemoglobin 12.3 g/dl (12.0-16.0); Mean Corpuscular Hemoglobin 32.5 pg (25.0-34.0); Mean Corpuscular Hgb Conc 34.6 g/dL (32.0-36.0); Mean Corpuscular Volume 94.2 fL (80.0-100.0); Mean Platelet Volume 9.3 fL (9.4-12.4); Platelet Count 274 K/uL (130-400); RDW Standard Deviation 44.8 fL (36.4-46.3); Red Blood Count 3.78 M/uL (4.20-5.40); White Blood Count 8.61 K/ul (4.8-10.8)
[2022-07-19 04:56] LABS: Albumin Globulin Ratio 1.7 (0.9-2); Albumin Level 4.3 gm/dl (3.4-5.0); BUN Creatinine Ratio 21.9 (10-20); Bilirubin,Total 0.6 mg/dl (0.2-1.0); Calcium 8.9 mg/dl (8.6-10.3); Creatinine Clr Calc Pharmacy 53.5 ml/min; Est GFR (Non-African American) 81.1 ml/min; Globulin 2.6 gm/dl (2.5-4.0); Potassium 4.2 mmol/L (3.5-5.1); Total Protein 6.9 gm/dl (6.0-8.3)
--- NOTE | 2022-07-19 05:57 | Surgery Consultation ---
Date of Consultation July 19, 2022 Assessment & Plan (1) SBO (small bowel obstruction): Patient with evidence of small bowel obstruction At the present time she seems to have significantly improved with no pain feeling much better Normal gastric fluid output from her NG, abdomen is soft with no tenderness For now continue with NG tube and IV fluids We will review her films and possibly repeat a KUB Recheck her later this morning Be sure her Phos and mag are normal History of Present Illness Attending Physician: Brendan Burton MD History of Present Illness 76-year-old female admitted to the hospital with nausea and vomiting and evidence of small bowel obstruction on her CT scan She had relatively acute onset of nausea and vomiting I believe this afternoon White count is normal CT scan shows dilated small bowel with possible transition point in the right upper quadrant possible torsion NG tube has been placed Allergies Allergy/AdvReac Type Severity Reaction Status Date / Time benzonatate Allergy Severe Difficulty Verified 07/19/22 02:50 swallowing phenylephrine Allergy Mild Nausea Verified 07/19/22 02:50 codeine [From Robitussin A-C] Allergy Unknown Unknown Verified 07/19/22 02:50 phenylpropanolamine Allergy Unknown Unknown Verified 07/19/22 02:50 [From Entex LA] house dust Allergy Unknown Verified 07/19/22 02:50 mold Allergy Unknown Verified 07/19/22 02:50 doxycycline AdvReac Mild GI SYMPTOMS Verified 07/19/22 02:50 guaifenesin AdvReac Mild GI SYMPTOMS Verified 07/19/22 02:50 hydrocodone AdvReac Mild GI SYMPTOMS Verified 07/19/22 02:50 Home Medications Medication Instructions Recorded Confirmed Type triamcinolone acetonide 0.1 % 1 applic topical DAILY PRN 02/25/20 07/19/22 Rx topical cream dermatitis #30 grams anastrozole 1 mg tablet 1 mg PO QPM 09/04/21 07/19/22 History chlorpheniramine-dextromethorphan 2 - 3 tab PO Q6H PRN NASAL DRIP 12/10/21 07/19/22 History 4 mg-30 mg tablet Symbicort 160 mcg-4.5 2 puff inhalation BID #3 Inhalers 02/18/22 07/19/22 Rx mcg/actuation HFA aerosol inhaler (budesonide-formoterol) albuterol sulfate 90 mcg/actuation 2 puff inhalation Q6H PRN 02/18/22 07/19/22 Rx aerosol inhaler Shortness Of Breath Or Wheezing 90 days #3 Inhalers cyanocobalamin (vitamin B-12) 1,000 mcg PO QAM 04/24/22 07/19/22 History 1,000 mcg capsule fluocinonide 0.05 % topical gel 1 applic topical BID PRN MOUTH 04/24/22 07/19/22 History ULCERS gabapentin 300 mg capsule 300 mg PO HS #90 caps 04/24/22 07/19/22 Rx ipratropium bromide 42 mcg (0.06 2 spray intranasal BID 90 days #3 05/17/22 07/19/22 Rx %) nasal spray ea pantoprazole 40 mg tablet,delayed 40 mg PO BID #60 tabs 07/01/22 07/19/22 Rx release Patient History Medical History (Updated 07/19/22 @ 01:45 by Tony Hendrix, ) Acute solar dermatitis Allergic rhinitis Alveolar emphysema of lung DAILY AND PRN INH Chronic cough Colon polyps HX Complaints of leg weakness UNDER CONTROL-ON GABAPENTIN COPD with emphysema Dysphagia "VERY OCCASIONAL" ETD (eustachian tube dysfunction) High serum high density lipoprotein (HDL) History of COVID-19 BEGINNING 04/2022, HOME TEST, NOT HOSP; MILD>RESOLVED. History of right breast cancer diagnosed 2013--sx/radiation Leukopenia Low back pain Malignant neoplasm of upper-inner quadrant of female breast RT BREAST 2013; LEFT BREAST 2021 Multiple pulmonary nodules Osteopenia after menopause Pain of lower extremity UNDER CONTROL W/GABAPENTING Post-nasal drip Pulmonary nodule, right Seasonal allergies Spinal stenosis Upper airway cough syndrome Vitamin D deficiency Surgical History (Updated 06/24/22 @ 11:38 by Libra Chang) History of bronchoscopy History of colonoscopy with polypectomy History of lumpectomy of left breast 2021; SX AND 1 MONTH OF RADIATION History of lumpectomy of right breast History of tooth extraction History of tubal ligation History of wisdom tooth extraction Family History Mother Bone cancer Parkinson disease Multiple myeloma Aunt Breast cancer Sister Breast cancer History of thyroid disorder Pancreatic cancer Daughter Bipolar disorder Father Family history of diabetes mellitus Grandmother (Maternal) Family history of esophageal cancer Brother Prostate cancer Lung cancer Sister Cancer Brother Cancer Other Asthma Diabetes No family history of adverse response to anesthesia No family history of bleeding disorder Denies family history of Tuberculosis Ovarian cancer Heart disease Allergies Myocardial infarction Emphysema, unspecified Colorectal cancer Lung disease Stroke Social History Smoking Status: Former smoker Tobacco Type: Cigarettes Age Quit Using Tobacco: 27; Cigarettes Per Day: 3; Second Hand Exposure: Yes (HX IN THE WORKPLACE); Do You Dip or Chew Tobacco: No; Hx Alcohol Use: Yes Alcohol type: wine Alcohol Intake Frequency: 4 or More x per/Week Alcohol Intake Frequency Comment: every day Hx Substance Use: No Preferred Language: Citizen Of [place] Communication Ability: Effective Visual Impairment: Limited Hearing Ability: Normal Blockman Required: No Beliefs That Will Affect Care: None marital status: Current Living Situation: Spouse current occupational status: retired How many Children do You have: 2 Other Information That Helps Us Care for You: No Feels Safe at Home: Yes Safety Concerns: Feels Safe At This Time Childhood Exposure to Second-Hand Smoke: No Diet: regular caffeine: Yes (tea ) during the past year weight has: remained stable Dental Care, Regularly: Yes Physical Activity Frequency: 5-6 Times per Week Seatbelt Use: always Sunscreen Use: Yes Assistive Devices: None Review of Systems Review of Systems: All systems reviewed & are unremarkable except as noted in HPI & below Physical Exam Physical Exam: NG tube in place with essentially normal gastric output nonbilious She is complaining of no pain Her mucous membranes are dry Her abdomen is flat and soft nontender She does have some decreased bowel sounds Constitutional: no acute distress Eyes: + anicteric sclerae Respiratory: normal respiratory effort; no respiratory distress Cardiovascular: Rate/Rhythm: regular rhythm Gastrointestinal (Abdomen): Inspection/Auscultation: abdomen not distended Musculoskeletal: Head/Neck/Chest: head atraumatic Skin: no rashes, warm and dry Neurologic: awake Psychiatric: Orientation: alert Results & Data Vital Signs (Past 12 Hours) Vital Signs Temp Pulse Pulse Resp BP BP Pulse Ox 07/19/22 03:45 07/19/22 03:45 37.0 C 97 H 16 160/76 H 95 07/19/22 02:40 112 H 14 127/76 96 07/19/22 01:33 85 23 165/90 H 100 07/19/22 01:00 90 29 H 175/96 H 91 07/19/22 00:09 95 H 27 H 178/121 H 100 07/18/22 23:30 95 H 30 H 165/108 H 90 07/18/22 23:01 93 H 20 194/93 H 100 07/18/22 22:39 99 H 22 189/106 H 100 O2 Del Method 07/19/22 03:45 Room Air 07/19/22 03:45 Room Air 07/19/22 02:40 Room Air 07/19/22 01:33 Room Air 07/19/22 01:00 Room Air 07/19/22 00:09 Room Air 07/18/22 23:30 Room Air 07/18/22 23:01 Room Air 07/18/22 22:39 Room Air Laboratory Results I reviewed her laboratories Diagnostic Findings I reviewed her CT scan and films PG Care Time/CCT Total # of Minutes Spent Total Time Spent with Patient: Total time spent is greater than 50% in coordination of care (as documented) at patient's floor/unit and/or counseling patient: Coding Level of Care Code 32837 IN/OBS CONSULT LVL 3,45M Diagnoses SBO (small bowel obstruction) K56.609
--- NOTE | 2022-07-19 08:13 | XRay Report ---
KUB CLINICAL HISTORY: Enteric tube placement. FINDINGS: An AP, portable, upright view of the lower chest and upper abdomen is correlated with abdom inal CT dated 07/18/2022. An enteric tube has been placed. The tip projects below the diaphragm over th e mid stomach. There is gaseous distention of the stomach and proximal small bowel loops indicating p ersistent obstruction. No evidence of intraperitoneal free air is seen below the diaphragm. No abnorm al calcifications are seen in the upper abdomen. The lung parenchyma is clear as imaged. The skeletal structures are osteopenic and appear intact. Degenerative change and scoliosis is noted in the spine . IMPRESSION: 1. An enteric tube has been placed as above. 2. Persistent small bowel obstruction. Electronically signed by: Jean Pierre Bauman M.D. 07/19/2022 8:11 AM
[2022-07-19] MEDS: FLUTICASONE/VILANTEROL 100/25MCG 14 PUFFS/INHALER INH SCH (08:25)
[2022-07-19] MEDS: ENOXAPARIN INJ 40 MG/0.4 ML SYR SQ SCH (08:25)
--- NOTE | 2022-07-19 13:20 | XRay Report ---
KUB CLINICAL HISTORY: Small bowel obstruction. FINDINGS: An AP supine abdominal radiograph is compared to study performed earlier the same day 023 and correlated with abdominal CT dated 07/18/2022. An enteric tube is unchanged in position. There is persistent small bowel obstruction. Proximal small bowel loops measure up to 4.9 cm in diameter. M [id number] fecal retention is seen throughout the colon. No evidence of intraperitoneal free air is seen on this supine image. Excreted IV contrast fills the bladder. The skeletal structures are os teopenic and appear intact. There is moderate lumbosacral spondylosis and scoliosis. IMPRESSION: Persistent small bowel obstruction. Electronically signed by: Jean Pierre Bauman M.D. 07/19/2022 1:19 PM
--- NOTE | 2022-07-19 18:10 | Hospitalist Progress Note ---
Date of Service July 19, 2022 Assessment & Plan (1) SBO (small bowel obstruction): Plan: Patient may have small bowel obstruction, KUB with out significant improvement but patient has had clinical improvement NG tube is managed by surgery. Initial clinical improvement will not pull tube await another day Patient only abdominal surgery has been tubal ligation in the distant past Patient continues on hydration pain control and antiemetics (2) Bilateral malignant neoplasm of breast in female: Plan: We will continue anastrozole with a small sip once small bowel obstruction is resolved continue on intravenous PPI (3) Alveolar emphysema of lung: Plan: Symbicort inhaler continues Plan Lovenox for DVT prevention Admission and Anticipated Discharge Date Admission Date: July 19, 2022 Subjective Patient feels improved has had no flatus or bowel movements improved abdominal pain but still with NG tube Physical Exam Physical Exam: abdominal exam is with hyperactive bowel sounds soft and non tender Results & Data Results & Data Vital Signs (Past 12 Hours) Vital Signs Temp Pulse Resp BP Pulse Ox O2 Del Method 07/19/22 14:47 98.2 F 98 H 18 142/71 H 99 Room Air 07/19/22 07:39 97.3 F L 96 H 16 118/68 97 Room Air Laboratory Results Reviewed CBC reviewed chemistry PG Care Time/CCT Total # of Minutes Spent Total Time Spent with Patient: Total time spent is greater than 50% in coordination of care (as documented) at patient's floor/unit and/or counseling patient: Coding Level of Care Code None Diagnoses SBO (small bowel obstruction) K56.609 Bilateral malignant neoplasm of breast in female C50.911; C50.912 Alveolar emphysema of lung J43.1
[2022-07-19 18:23] LABS: Appearance Urine Clear (Clear); Bacteria Urine Automated Negative (Negative); Bilirubin Urine Negative (Negative); Blood Urine Negative (Negative); Color Urine Yellow; Epithelial Cell Urine Auto >30 /lpf (0-5); Glucose Urine UA Trace (Negative); Ketones Urine 2+ (Negative); Leukocyte Esterase Urine 1+ (Negative); Nitrite Urine Negative (Negative); Protein Urine Negative (Negative); RBC Urine Automated 0-4 /hpf (0-4); Specific Gravity Urine 1.024 (1.000-1.030); Urobilinogen Urine Negative (Negative); pH Urine 6.5 (4.5-7.5)
[2022-07-19] MEDS: ACETAMINOPHEN 1,000 MG/100 ML VIAL IV PRN (18:23)
--- NOTE | 2022-07-19 22:47 | Billing Data ---
Date of Service July 19, 2022 Coding Level of Care Code 14840 INT INP/OBS CARE
[2022-07-20] MEDS: ONDANSETRON INJ 2 MG/ML 2 ML VIAL IV PRN (05:37)
[2022-07-20] MEDS: ACETAMINOPHEN 1,000 MG/100 ML VIAL IV PRN ×2 (07:13→19:28)
[2022-07-20 07:18] LABS: Magnesium 2.1 mg/dl (1.7-2.4); Phosphorus 2.3 mg/dl (2.5-4.9)
--- NOTE | 2022-07-20 07:27 | XRay Report ---
KUB CLINICAL HISTORY: r/o sbo COMPARISON STUDY: CT of the abdomen and pelvis July 18, 2022. KUB July 19, 2022. FINDINGS: Tip of nasogastric tube projects over the gastric antrum. Multiple loops of mildly dilated small bowel are noted. Small bowel dilatation has mildly decreased since prior CT. IMPRESSION: Multiple loops of mildly dilated small bowel, slightly decreased since prior exam. The fi ndings suggest a persistent but improving small bowel obstruction. ACT 112: Negative or not required by law. Electronically signed by: Salvador Gibbs M.D. 07/20/2022 7:26 AM
[2022-07-20] MEDS: FLUTICASONE/VILANTEROL 100/25MCG 14 PUFFS/INHALER INH SCH (08:11)
[2022-07-20] MEDS: ENOXAPARIN INJ 40 MG/0.4 ML SYR SQ SCH (08:11)
--- NOTE | 2022-07-20 08:26 | Hospitalist Progress Note ---
Date of Service July 20, 2022 Assessment & Plan (1) SBO (small bowel obstruction): Plan: Patient is a 76-year-old female who presented to the hospital for evaluation for nausea and vomiting. Patient found to have small bowel obstruction secondary to volvulus. Patient is currently comfortable and hemodynamically stabilized and has been admitted for bowel decompression and monitoring for resolution of symptoms. -Surgery consulted, appreciate recommendations, ngt still to LIS - try viscous lidocaine for throat irritation from ngt -IV Zofran as needed for nausea -continues N.p.o. status, may have ice chips -Morphine as needed for pain control, IV Tylenol also available -Hold home medications while n.p.o. -LR at 100 cc/h, will consider PPN on 07/21/22 (2) Bilateral malignant neoplasm of breast in female: Plan: - History noted in chart review. -Diagnosis of right-sided breast cancer in 2012 status postlumpectomy followed by radiation therapy and 5 years of tamoxifen therapy -Diagnosis of left breast malignancy in July 2020. Status post partial mastectomy in 09/05/2020 with negative sentinel lymph node biopsy. Radiation therapy completed 11/20/2020. -Since June 2021 has been on anastrozole for suppression therapy. (3) Hyperlipidemia: Plan: - Noted in chart review, no home medications Plan DVT prophylaxis: Lovenox CODE STATUS: Full code Admission and Anticipated Discharge Date Admission Date: July 19, 2022 Subjective this pt is a bit discouraged, she is with some minimal flatus, but Physical Exam Physical Exam: abdominal exam is with hyperactive bowel sounds soft and non tender Results & Data Results & Data Vital Signs (Past 12 Hours) Vital Signs Temp Pulse Resp BP Pulse Ox O2 Del Method 07/20/22 07:15 97.9 F 98 H 18 166/82 H 97 Room Air 07/20/22 05:35 98.6 F 81 16 168/81 H 94 Room Air 07/19/22 21:52 98.2 F 84 18 153/76 H 98 Room Air PG Care Time/CCT Total # of Minutes Spent Total Time Spent with Patient: Total time spent is greater than 50% in coordination of care (as documented) at patient's floor/unit and/or counseling patient: Coding Level of Care Code 24967 SUB INP/OBS CARE 2/35MIN Diagnoses SBO (small bowel obstruction) K56.609 Bilateral malignant neoplasm of breast in female C50.911; C50.912 Hyperlipidemia E78.5
[2022-07-20] MEDS: LACTATED RINGER'S 1,000 ML IV SCH ×2 (10:01→20:10)
--- NOTE | 2022-07-20 10:37 | Surgery Progress Note ---
Date of Service July 20, 2022 Assessment & Plan (1) SBO (small bowel obstruction): Plan: 76 yo female with small bowel obstruction. She reports improvement today. She is passing flatus, but no BM yet. She is walking in hallway- continued ambulation encouraged. Will keep NG tube as she does report some continued nausea. General Surgery will continue to follow. Admission and Anticipated Discharge Date Admission Date: July 19, 2022 Supervising Physician Co-Signing Physician Notes I personally saw and evaluated the patient with Julia Peña PA-C and agree with the assessment and plan. 76-year-old female with small bowel obstruction Her KUB images and results was personally viewed by myself, slightly improved She does still have some pain, however NG tube is in place and draining some light bilious output We will continue nonoperative management in her NG tube today If she continues to have low output from her NG tube, possibly remove tomorrow and initiate clear liquids pending her progress Subjective Kaykay is resting in bed, she does report some improvement in abdominal pain. She does report that she is passing some flatus. She denies bowel movement. Does continue to have some mild nausea. She has been walking the hallway. Review of Systems Review of Systems: All systems reviewed & are unremarkable except as noted in HPI & below Physical Exam Physical Exam: NG tube in place with 300 cc of output overnight. Reports expected discomfort from NG tube. Constitutional: no acute distress Eyes: + anicteric sclerae Respiratory: normal respiratory effort; no respiratory distress Cardiovascular: Rate/Rhythm: regular rhythm Gastrointestinal (Abdomen): Inspection/Auscultation: abdomen not distended Musculoskeletal: Head/Neck/Chest: head atraumatic Skin: no rashes, warm and dry Neurologic: awake Psychiatric: Orientation: alert Results & Data Vital Signs (Past 12 Hours) Vital Signs Temp Pulse Resp BP Pulse Ox O2 Del Method 07/20/22 07:15 36.6 C 98 H 18 166/82 H 97 Room Air 07/20/22 05:35 37.0 C 81 16 168/81 H 94 Room Air PG Care Time/CCT Total # of Minutes Spent Total Time Spent with Patient: Total time spent is greater than 50% in coordination of care (as documented) at patient's floor/unit and/or counseling patient: Coding Level of Care Code 65145 SUB INP/OBS CARE 1/25MIN Diagnoses SBO (small bowel obstruction) K56.607
[2022-07-20] MEDS: PANTOprazole 40 MG in SYRINGE 0 ML IV SCH (11:22)
[2022-07-20] MEDS ORDERED: LIDOCAINE VISCOUS 2% 100ML BOTTLE MT PRN ×2 (17:07→17:13)
[2022-07-20] MEDS: LIDOCAINE VISCOUS 2% 15 ML UDC MT PRN (19:24)
[2022-07-20] MEDS ORDERED: hydrOXYzine HCL IM SOLN 50 MG/ML 1 ML VIAL IM STA (21:31)
[2022-07-21] MEDS: LIDOCAINE VISCOUS 2% 15 ML UDC MT PRN (04:13)
--- NOTE | 2022-07-21 05:45 | Electrocardiogram Report ---
Test Reason : Blood Pressure : / mmHG Vent. Rate : 097 BPM Atrial Rate : 097 BPM P-R Int : 132 ms QRS Dur : 070 ms QT Int : 402 ms P-R-T Axes : 061 046 005 degrees QTc Int : 510 ms Normal sinus rhythm with sinus arrhythmia Prolonged QT When compared with ECG of 06-APR-2022 16:11, Nonspecific T wave abnormality no longer evident in Lateral leads Confirmed by Sai Portillo ([id number]) on 07/21/2022 5:44:48 AM Referred By: REFERRED SELF Confirmed By:Sai Portillo
[2022-07-21] MEDS: LACTATED RINGER'S 1,000 ML IV SCH ×2 (06:18→16:02)
[2022-07-21 06:39] LABS: Hematocrit (blood only) 34.7 % (37.0-47.0); Hemoglobin 11.8 g/dl (12.0-16.0); Mean Corpuscular Hemoglobin 32.5 pg (25.0-34.0); Mean Corpuscular Volume 95.6 fL (80.0-100.0); Mean Platelet Volume 9.6 fL (9.4-12.4); Platelet Count 263 K/uL (130-400); RDW Coefficient of Variation 12.8 % (11.5-14.5); RDW Standard Deviation 45.2 fL (36.4-46.3); Red Blood Count 3.63 M/uL (4.20-5.40); White Blood Count 5.01 K/ul (4.8-10.8)
[2022-07-21 07:01] LABS: Albumin Globulin Ratio 1.5 (0.9-2); Albumin Level 3.8 gm/dl (3.4-5.0); Bilirubin,Total 0.9 mg/dl (0.2-1.0); Calcium 8.4 mg/dl (8.6-10.3); Creatinine Clr Calc Pharmacy 78.1 ml/min; Est GFR (African American) 110.5 ml/min; Est GFR (Non-African American) 95.3 ml/min; Globulin 2.6 gm/dl (2.5-4.0); Magnesium 1.8 mg/dl (1.7-2.4); Potassium 3.6 mmol/L (3.5-5.1); Total Protein 6.4 gm/dl (6.0-8.3)
[2022-07-21] MEDS: LORazepam 2 MG/1 ML VIAL IV PRN (08:32)
[2022-07-21] MEDS: FLUTICASONE/VILANTEROL 100/25MCG 14 PUFFS/INHALER INH SCH (08:32)
[2022-07-21] MEDS: ENOXAPARIN INJ 40 MG/0.4 ML SYR SQ SCH (08:32)
[2022-07-21] MEDS ORDERED: hydrALAZINE HCL 20 MG/ML VIAL IV PRN (08:58)
[2022-07-21] MEDS ORDERED: DEXTROSE 10% 1,000 ML IV PRN (08:58)
--- NOTE | 2022-07-21 09:41 | Surgery Progress Note ---
Date of Service July 21, 2022 Assessment & Plan (1) SBO (small bowel obstruction): Plan: 76 yo female with small bowel obstruction. She reports that she is not feeling well today. Tachycardic and hypertensive. She denies passing flatus today and no BM yet. She is walking in hallway- continued ambulation encouraged. Multiple KUBs performed last night- show persistent, but somewhat slightly improved small bowel obstruction. NG tube readjusted by nursing this AM- repeat KUB ordered. Continue NG tube. Will continue to closely monitor. Patient seen and examied with Dr. Louis. Admission and Anticipated Discharge Date Admission Date: July 19, 2022 Supervising Physician Co-Signing Physician Notes I personally saw and evaluated the patient with Julia Peña PA-C and agree with the assessment and plan. 76-year-old female with small bowel obstruction She remains slightly distended and with no return of bowel function We did look at her KUB from last night and her NG tube needs to be pulled back We will repeat a KUB this morning Her vital signs still remained stable and she has nearly no pain on exam We will continue to try and treat her nonoperatively at this time If she develops high fever, worsening abdominal pain or worsening abdominal exam, we will proceed with surgery Subjective Kaykay reports that she is not feeling well this morning. NG tube is very uncomfortable. She denies abdominal pain, but reports that she feels very bloated. She denies passing flatus and denies moving her bowels. Review of Systems Constitutional: no fever and no chills Respiratory: no cough, no chest congestion, no dyspnea and no dyspnea on exertion Gastrointestinal: + abdominal pain (generalized) and + bloating; no nausea and no vomiting Physical Exam Physical Exam: NG tube in place with 100 cc of output overnight. Reports expected discomfort from NG tube. Abdomen not rigid. Constitutional: no acute distress Eyes: + anicteric sclerae Respiratory: normal respiratory effort; no respiratory distress Cardiovascular: Rate/Rhythm: regular rhythm Gastrointestinal (Abdomen): Inspection/Auscultation: abdomen not distended Musculoskeletal: Head/Neck/Chest: head atraumatic Skin: no rashes, warm and dry Neurologic: awake Psychiatric: Orientation: alert Results & Data Vital Signs (Past 12 Hours) Vital Signs Temp Pulse Resp BP Pulse Ox O2 Del Method 07/21/22 07:47 102 H 173/85 H 07/21/22 07:25 36.9 C 107 H 18 179/102 H 97 Room Air PG Care Time/CCT Total # of Minutes Spent Total Time Spent with Patient: Total time spent is greater than 50% in coordination of care (as documented) at patient's floor/unit and/or counseling patient: Coding Level of Care Code 23014 SUB INP/OBS CARE 03/06MIN Diagnoses SBO (small bowel obstruction) K56.609
--- NOTE | 2022-07-21 09:52 | XRay Report ---
XR KUB/Abdomen 1 view, XR KUB/Abdomen 1 view CLINICAL HISTORY: NG tube placement check TECHNIQUE: 1 view of the abdomen was obtained. Comparison: Comparison is made to abdomen radiograph 07/20/2022 FINDINGS: 2136 hours: Enteric tube terminates in the proximal esophagus. Degenerative changes are seen in the visualized [place]. Multiple loops of slightly dilated small bowel are again seen. A moderate amount of stool is noted within the large bowel. 2220 hours: Enteric tube has been advanced and is in satisfactory position. IMPRESSION: In the final image, the enteric tube is in satisfactory position. Partially visualized multiple loops of prominent small bowel may represent continued small bowel obstruction. ACT 112: Negative or not required by law. Electronically signed by: Parish Douglas M.D. 07/21/2022 9:51 AM
[2022-07-21] MEDS ORDERED: TPN/PPN CONSULT PHARMACY PRN (09:53)
[2022-07-21] MEDS: PANTOprazole 40 MG in SYRINGE 0 ML IV SCH (11:07)
--- NOTE | 2022-07-21 13:13 | XRay Report ---
XR KUB/Abdomen 1 view CLINICAL HISTORY: persistent SBO TECHNIQUE: 1 view of the abdomen was obtained. Comparison: Comparison is made to abdomen radiographs 07/20/2022 FINDINGS: Lung bases are unremarkable. Enteric tube tip and side-port are below the diaphragm. Degenerative maría nges are seen in the visualized skeleton. Multiple gas-distended loops of small bowel measure up to 4 5 mm. Small stool burden is seen. IMPRESSION: Interval worsening of small bowel obstruction with multiple gas-distended loops of small bowel. ACT 112: Negative or not required by law. Electronically signed by: Parish Douglas M.D. 07/21/2022 1:11 PM
[2022-07-21] MEDS: ONDANSETRON INJ 2 MG/ML 2 ML VIAL IV PRN (13:22)
--- NOTE | 2022-07-21 15:40 | Pharmacy Report ---
Pharmacy PN Initial Consult - Date of Service July 21, 2022 - Scope Pharmacy has been consulted to manage parenteral nutrition orders and order appropriate labs. As part of the Nutrition Support Team guidelines, pharmacy will work in conjunction with dietary when determining the patients caloric needs. - Subjective The patient is a 76 year old F admitted on 07/19/22 02:29 for N/V. Patient is to receive parenteral nutrition for persistent SBO. - Objective Height: 5 ft 2 in Weight: 53.7 kg Diet: NPO Intake & Output (Last 24Hrs): Intake & Output 07/19/22 07/20/22 07/21/22 07/22/22 06:59 06:59 06:59 06:59 Intake Total 500 / 500 2095 / 2095 3170 / 3170 Output Total 300 / 300 850 / 850 250 / 250 Balance 500 / 500 1795 / 1795 2320 / 2320 -250 / -250 Weight 53.7 kg 53.7 kg Laboratory Data (Last 24 Hrs):: 07/21/22 07/21/22 06:09 06:09 Sodium 135 L Potassium 3.6 Chloride 101 Carbon Dioxide 23 BUN 10 Creatinine 0.50 L Glucose 73 Calcium 8.4 L Phosphorus 2.1 L Magnesium 1.8 Total Bilirubin 0.9 AST 18 ALT 13 Alkaline Phosphatase 40 Albumin 3.8 Nutrition Assessment:: Please refer to the Notes section of the EMR for the most recent appeals board referee note. - Assessment Kaykay is a 76 yo with persistent small bowel obstruction. She is currently being managed conservatively. NPO since time of admission. * PPN started today at reduced rate. To be titrated up to goal of 1150 kcal/day (~82 g AA, 96 g dextrose, 50 g lipid) as tolerated. - Plan For day 1 of PN administration, the following will be ordered: Macronutrients Amino acids 41 grams/day Dextrose 48 grams/day Lipids 50 grams/day Micronutrients Combined electrolytes 20 mL - contains 35 mEq Na, 20 meq K, 4.5 mEq Ca, 5 mEq Mg, 35 mEq Cl, 29.5 mEq acetate per 20 mL Sodium chloride 20 mEq Sodium acetate 20 mEq Potassium phosphate 24 mMol Multivitamins 10 mL Trace Elements 10 mL Total volume 1017 mL to be infused over 24 hrs will provide 826 kcal/day Final osmolarity 896 mOsm/L (maximum for PPN is 900 mOsm/L) Labs to be ordered per PN order protocol Pharmacy will follow and adjust parenteral nutrition orders on a daily basis. Thank you.
--- NOTE | 2022-07-21 15:41 | Hospitalist Progress Note ---
Date of Service July 21, 2022 Assessment & Plan (1) SBO (small bowel obstruction): Plan: Patient is a 76-year-old female who presented to the hospital for evaluation for nausea and vomiting. Patient found to have small bowel obstruction secondary to volvulus. Patient is currently comfortable and hemodynamically stabilized and has been admitted for bowel decompression and monitoring for resolution of symptoms. -Surgery consulted, appreciate recommendations, ngt still to LIS tube reposition after review of KUB -Patient with significant irritation from NG tube not improved with viscous lidocaine Patient with increasing anxiety Ativan administered -IV Zofran as needed for nausea -continues N.p.o. status, may have ice chips -Morphine as needed for pain control, IV Tylenol also available -Hold home medications while n.p.o. -LR at 100 cc/h, will consider PPN on 07/21/22 (2) Bilateral malignant neoplasm of breast in female: Plan: - History noted in chart review. -Diagnosis of right-sided breast cancer in 2012 status postlumpectomy followed by radiation therapy and 5 years of tamoxifen therapy -Diagnosis of left breast malignancy in July 2020. Status post partial mastectomy in 09/05/2020 with negative sentinel lymph node biopsy. Radiation therapy completed 11/20/2020. -Since June 2021 has been on anastrozole for suppression therapy. (3) Hyperlipidemia: Plan: - Noted in chart review, no home medications Plan DVT prophylaxis: Lovenox CODE STATUS: Full code Admission and Anticipated Discharge Date Admission Date: July 19, 2022 Subjective Patient with frustration and anxiety. Ativan administered with good effect. Patient still having little abdominal discomfort but no return of bowel function. KUB without much progression but some slight worsening may be because of malposition of tube surgery manipulating NG tube Physical Exam Physical Exam: abdominal exam is with hyperactive bowel sounds soft and non tender Results & Data Results & Data Vital Signs (Past 12 Hours) Vital Signs Temp Pulse Resp BP BP Pulse Ox O2 Del Method 07/21/22 15:27 97.5 F L 96 H 18 162/84 H 97 Room Air 07/21/22 09:42 96 H 173/85 H 07/21/22 07:47 102 H 173/85 H 07/21/22 07:25 98.4 F 107 H 18 179/102 H 97 Room Air Laboratory Results CBC and chemistry reviewed and are stable PG Care Time/CCT Total # of Minutes Spent Total Time Spent with Patient: Total time spent is greater than 50% in coordination of care (as documented) at patient's floor/unit and/or counseling patient: Coding Level of Care Code 70179 SUB INP/OBS CARE 2/35MIN Diagnoses SBO (small bowel obstruction) K56.609 Bilateral malignant neoplasm of breast in female C50.911; C50.912 Hyperlipidemia E78.5
[2022-07-21] MEDS ORDERED: PERIPHERAL TPN IV SCH (16:00)
[2022-07-21] MEDS ORDERED: CLINOLIPID 20% IV FAT EMULSION 250 ML IV SCH (16:00)
[2022-07-21] MEDS ORDERED: [UNRECOGNIZED DRUG - OTHER] IV SCH (16:00)
[2022-07-21] MEDS ORDERED: PROMETHAZINE HCL 12.5 MG in SODIUM CHLORIDE 0.9% 50 ML IV PRN (17:12)
[2022-07-21] MEDS: STOP CLINOLIPID SCH (22:10)
--- NOTE | 2022-07-22 06:08 | Surgery Progress Note ---
Date of Service July 22, 2022 Assessment & Plan (1) SBO (small bowel obstruction): Plan: Patient is not making progress Her abdomen is more distended Small bowel obstruction is not resolving Patient will require abdominal exploration, lysis of adhesions, possible bowel resection We will proceed later this morning IV antibiotics ordered We will call her Admission and Anticipated Discharge Date Admission Date: July 19, 2022 Results & Data Vital Signs (Past 12 Hours) Vital Signs Temp Pulse Resp BP Pulse Ox O2 Del Method 07/21/22 21:17 37 C 83 18 181/94 H 95 Room Air PG Care Time/CCT Total # of Minutes Spent Total Time Spent with Patient: Total time spent is greater than 50% in coordination of care (as documented) at patient's floor/unit and/or counseling patient: Coding Level of Care Code None Diagnoses SBO (small bowel obstruction) K56.609
[2022-07-22] MEDS ORDERED: cefOXitin 2,000 MG in DEXTROSE 5% 50 ML IV ONE (06:15)
[2022-07-22 07:27] LABS: Albumin Globulin Ratio 1.4 (0.9-2); Albumin Level 4.2 gm/dl (3.4-5.0); BUN Creatinine Ratio 13.6 (10-20); Bilirubin,Total 0.8 mg/dl (0.2-1.0); Calcium 8.9 mg/dl (8.6-10.3); Creatinine Clr Calc Pharmacy 48.2 ml/min; Est GFR (African American) 82.9 ml/min; Est GFR (Non-African American) 71.5 ml/min; Magnesium 1.9 mg/dl (1.7-2.4); Potassium 3.6 mmol/L (3.5-5.1); Total Protein 7.2 gm/dl (6.0-8.3)
[2022-07-22] MEDS: LORazepam 2 MG/1 ML VIAL IV PRN (07:48)
[2022-07-22] MEDS ORDERED: SODIUM PHOSPHATE 3 MMOL/1 ML INFUSION IV STA (08:27)
[2022-07-22] MEDS ORDERED: SODIUM PHOSPHATE 21 MMOL in SODIUM CHLORIDE 0.9% 500 ML IV ONE (08:45)
[2022-07-22] MEDS ORDERED: PROPOFOL IV EMULSION 10 MG/ML 20 ML VIAL IV ONE (08:56)
[2022-07-22] MEDS ORDERED: GLYCOPYRROLATE 0.2 MG/ML VIAL ONE (08:56)
[2022-07-22] MEDS ORDERED: LIDOCAINE 2% 2 ML VIAL/AMP(20MG/ML) INFIL ONE (08:56)
[2022-07-22] MEDS ORDERED: DEXAMETHASONE SOD INJ 4 MG/ML VIAL ONE (08:56)
[2022-07-22] MEDS ORDERED: ONDANSETRON INJ 2 MG/ML 2 ML VIAL ONE (08:56)
[2022-07-22] MEDS ORDERED: NEOSTIGMINE METHYLSULFATE 1 MG/ML 10ML VIAL ONE (08:56)
[2022-07-22] MEDS ORDERED: fentaNYL citrate PF 100 MCG/2 ML VIAL ONE ×2 (08:57)
[2022-07-22] MEDS ORDERED: MIDAZOLAM HCL 1 MG/ML 2ML VIAL ONE (08:57)
[2022-07-22] MEDS ORDERED: ROCURONIUM BROMIDE 10 MG/ML 5 ML VIAL IV ONE (08:59)
[2022-07-22] MEDS ORDERED: LARYING-O-JET KIT (LTA) ONE (08:59)
--- NOTE | 2022-07-22 09:57 | Anesthesiology Consultation ---
Date of Service July 22, 2022 History Surgery Operation Date: 07/22/22 07:50 Proposed Procedures p Exploratory Laparotomy Possible Bowel Rection - Julio Garner MD, FACS Height/Weight Height: 5 ft 2 in Weight: 53.7 kg Allergies Allergy/AdvReac Type Severity Reaction Status Date / Time benzonatate Allergy Severe Difficulty Verified 07/19/22 02:50 swallowing phenylephrine Allergy Mild Nausea Verified 07/19/22 02:50 codeine [From Robitussin A-C] Allergy Unknown Unknown Verified 07/19/22 02:50 phenylpropanolamine Allergy Unknown Unknown Verified 07/19/22 02:50 [From Entex LA] house dust Allergy Unknown Verified 07/19/22 02:50 mold Allergy Unknown Verified 07/19/22 02:50 doxycycline AdvReac Mild GI SYMPTOMS Verified 07/19/22 02:50 guaifenesin AdvReac Mild GI SYMPTOMS Verified 07/19/22 02:50 hydrocodone AdvReac Mild GI SYMPTOMS Verified 07/19/22 02:50 Medications Home Medications Medication Instructions Recorded Confirmed Last Taken triamcinolone acetonide 0.1 % 1 applic topical DAILY PRN 02/25/20 07/19/22 06/30/22 topical cream dermatitis #30 grams anastrozole 1 mg tablet 1 mg PO QPM 09/04/21 07/19/22 06/30/22 chlorpheniramine-dextromethorphan 2 - 3 tab PO Q6H PRN NASAL DRIP 12/10/21 0 07/19/22 06/30/22 4 mg-30 mg tablet Symbicort 160 mcg-4.5 2 puff inhalation BID #3 Inhalers 02/18/22 07/19/22 06/30/22 mcg/actuation HFA aerosol inhaler (budesonide-formoterol) albuterol sulfate 90 mcg/actuation 2 puff inhalation Q6H PRN 02/18/22 07/19/22 06/30/22 aerosol inhaler Shortness Of Breath Or Wheezing 90 days #3 Inhalers cyanocobalamin (vitamin B-12) 1,000 mcg PO QAM 04/24/22 07/19/22 06/30/22 1,000 mcg capsule fluocinonide 0.05 % topical gel 1 applic topical BID PRN MOUTH 04/24/22 07/19/22 Unknown ULCERS gabapentin 300 mg capsule 300 mg PO HS #90 caps 03/15/23 06/09/23 05/21/23 ipratropium bromide 42 mcg (0.06 2 spray intranasal BID 90 days #3 05/17/22 07/19/22 06/30/22 %) nasal spray ea pantoprazole 40 mg tablet,delayed 40 mg PO BID #60 tabs 07/01/22 07/19/22 Unknown release Active Medications Generic Name Dose Route Start Last Admin Trade Name Binh PRN Reason Stop Dose Admin Fluticasone/Vilanterol 1 puffs 07/19/22 09:00 07/21/22 08:32 Fluticasone/Vilanterol 100/25mcg 14 Puffs/Inhaler INH 08/18/22 08:59 1 puffs DAILY LYNDSAY Administration Protocol Pantoprazole Sodium 40 mg/ 10 mls @ 5 mls/min 07/20/22 11:00 07/21/22 11:07 Syringe IV 08/19/22 10:59 5 mls/min DAILY@1100 LYNDSAY Administration Amino Acids 1,017 ml/ 1,017 mls @ 42.4 mls/hr 07/21/22 16:00 07/21/22 16:01 Nutrition (Parenteral) IV 07/22/22 15:59 42.4 mls/hr .Q24H LYNDSAY Administration Protocol Promethazine HCl 12.5 mg/ 50.5 mls @ 202 mls/hr 07/21/22 17:12 07/21/22 18:03 Sodium Chloride IV 08/20/22 17:11 Infused Q6H PRN Infusion Nausea And Vomiting Lidocaine HCl 5 ml 07/20/22 17:16 07/21/22 04:13 Lidocaine Viscous 2% 15 Ml Udc MT 08/19/22 17:15 5 ml Q4H PRN Administration sore throat Lorazepam 0.5 mg 07/21/22 07:54 07/22/22 07:48 Lorazepam 2 Mg/1 Ml Vial IV 08/20/22 07:53 0.5 mg Q6H PRN Administration Anxiety/Agitation Miscellaneous 1 each 07/21/22 22:00 07/21/22 22:10 Stop Clinolipid N/A 08/20/22 21:59 1 each Q24H LYNDSAY Administration Morphine Sulfate 2 mg 07/19/22 03:37 07/20/22 05:37 Morphine Sulfate 2 Mg/Ml Carp IV 08/02/22 03:36 2 mg Q4H PRN Administration Moderate Pain (Scale 5, 6, 7) Ondansetron HCl 4 mg 07/19/22 03:37 07/21/22 13:22 Ondansetron Inj 2 Mg/Ml 2 Ml Vial IV 08/18/22 03:36 4 mg Q4H PRN Administration Nausea NPO Date Last Intake of Fluids: 07/21/22 Time Last Intake of Fluids: 18:00 Last Intake of Fluids Comment: ice chips only 07-21-22 Date Last Intake of Solids: 07/18/22 Past Medical History Medical History Acute solar dermatitis Allergic rhinitis Alveolar emphysema of lung DAILY AND PRN INH Chronic cough Colon polyps HX Complaints of leg weakness UNDER CONTROL-ON GABAPENTIN COPD with emphysema Dysphagia "VERY OCCASIONAL" ETD (eustachian tube dysfunction) High serum high density lipoprotein (HDL) History of COVID-19 BEGINNING 04/2022, HOME TEST, NOT HOSP; MILD>RESOLVED. History of right breast cancer diagnosed 2013--sx/radiation Leukopenia Low back pain Malignant neoplasm of upper-inner quadrant of female breast RT BREAST 2013; LEFT BREAST 2021 Multiple pulmonary nodules Osteopenia after menopause Pain of lower extremity UNDER CONTROL W/GABAPENTING Post-nasal drip Pulmonary nodule, right Seasonal allergies Spinal stenosis Upper airway cough syndrome Vitamin D deficiency Exercise / Class Metabolic Activity II 4-5 Yardwork/Stairs/Walk up hill Past Family History Family History Mother Bone cancer Parkinson disease Multiple myeloma Aunt Breast cancer Sister Breast cancer History of thyroid disorder Pancreatic cancer Daughter Bipolar disorder Father Family history of diabetes mellitus Grandmother (Maternal) Family history of esophageal cancer Brother Prostate cancer Lung cancer Sister Cancer Pancreatic Cancer Brother Cancer Lung Cancer Other Asthma Diabetes No family history of adverse response to anesthesia No family history of bleeding disorder Denies family history of Tuberculosis Ovarian cancer Heart disease Allergies Myocardial infarction Emphysema, unspecified Colorectal cancer Lung disease Stroke Past Surgical History Surgical History History of bronchoscopy History of colonoscopy with polypectomy History of lumpectomy of left breast 2021; SX AND 1 MONTH OF RADIATION History of lumpectomy of right breast History of tooth extraction History of tubal ligation History of wisdom tooth extraction Past Anesthesia History No Hx of Anesthesia Complications History of PONV No Hx of PONV and No Hx of Motion Sickness Social History Smoking Status: Former smoker tobacco type: cigarettes Smoking cigarettes per day: 3 Do You Dip or Chew Tobacco: No Hx Alcohol Use: Yes Alcohol type: wine alcohol intake frequency: 0-2 drinks per day Hx Substance Use: No substance use type: does not use Review of Systems Constitutional: as per Subjective / HPI Eyes: as per Subjective / HPI Respiratory: + cough Cardiovascular: no chest pain, no chest pain at rest, no chest pain with activity and no dyspnea on exertion Gastrointestinal: as per Subjective / HPI and + abdominal pain Genitourinary (Female): no problem reported Musculoskeletal: no problem reported Physical Exam Vital Signs Last Vital Signs Temp 37.0 C 07/22/22 08:33 Pulse 110 H 07/22/22 08:33 Resp 22 07/22/22 08:33 BP 167/103 H 07/22/22 08:33 Pulse Ox 97 07/22/22 08:33 O2 Del Method Room Air 07/22/22 08:33 Constitutional no acute distress ENMT Mouth: no dentures Mallampati Class: II Neck normal visual inspection and trachea midline Respiratory no respiratory distress Auscultation: lungs clear to auscultation bilaterally; no diminished lung sounds Cardiovascular Rate/Rhythm: regular rate and regular rhythm Musculoskeletal Spine: normal cervical ROM Testing Laboratory Results 07/22/22 06:51 07/22/22 06:51 PT 10.4 Seconds (9.0-12.0) 07/18/22 22:49 INR 0.9 (0.9-1.1) 07/18/22 22:49 Urine Color Yellow 07/19/22 18:05 Urine Appearance Clear (Clear) 07/19/22 18:05 Urine pH 6.5 (4.5-7.5) 07/19/22 18:05 Ur Specific [place] 1.024 (1.000-1.030) 07/19/22 18:05 Urine Protein Negative (Negative) 07/19/22 18:05 Urine Glucose (UA) Trace (Negative) H 07/19/22 18:05 Urine Ketones 2+ (Negative) H 07/19/22 18:05 Urine Nitrite Negative (Negative) 07/19/22 18:05 Ur Leukocyte Esterase 1+ (Negative) H 07/19/22 18:05 Urine WBC (Auto) 5-10 /hpf (0-5) H 07/19/22 18:05 Urine RBC (Auto) 0-4 /hpf (0-4) 07/19/22 18:05 U Hyaline Cast (Auto) 1-5 /lpf (0-5) 07/19/22 18:05 U Epithel Cells (Auto) >30 /lpf (0-5) H 07/19/22 18:05 Urine Bacteria (Auto) Negative (Negative) 07/19/22 18:05 07/22/22 07/22/22 05:57 00:09 POC Glucose 152 H 155 H
[2022-07-22] MEDS ORDERED: ONDANSETRON INJ 2 MG/ML 2 ML VIAL IV PRN (10:00)
[2022-07-22] MEDS ORDERED: ePHEDrine sulfate 50 MG/ML AMP IV PRN (10:00)
[2022-07-22] MEDS ORDERED: HYDROmorphone INJ 1 MG/ML SYRINGE IV PRN (10:00)
[2022-07-22] MEDS ORDERED: ATROPINE SULFATE 0.1 MG/ML 10ML SYR IV PRN (10:00)
[2022-07-22] MEDS ORDERED: BUPIVACAINE 0.5 % 5 MG/1 ML MPF 30ML VIAL ONE (10:07)
--- NOTE | 2022-07-22 10:16 | XRay Report ---
XR KUB/Abdomen 1 view CLINICAL HISTORY: eval sbo TECHNIQUE: 1 view of the abdomen was obtained. Comparison: Comparison is made to radiographs 07/21/2022 FINDINGS: Enteric tube has been slightly withdrawn and the side-port now lies above the diaphragm. Degenerative changes are seen in the visualized skeleton. Multiple gas-distended loops of small bowel measure up to 50 mm. Small stool burden is seen. IMPRESSION: 1. Enteric tube has with withdrawn and can be advanced approximately 5 cm for improved positioning. 2. Multiple gas-distended loops of small bowel are again seen compatible with obstruction. ACT 112: Negative or not required by law. Electronically signed by: Parish Douglas M.D. 07/22/2022 10:15 AM
[2022-07-22] MEDS ORDERED: SUCCINYLCHOLINE 100MG/5ML SYR IV ONE (10:22)
[2022-07-22] MEDS ORDERED: ACETAMINOPHEN 1000 MG/100 ML IV IV ONE (10:25)
[2022-07-22] MEDS ORDERED: SUGAMMADEX SODIUM 200 MG/2 ML VIAL IV ONE (10:58)
--- NOTE | 2022-07-22 11:15 | Post Operative Brief Note ---
PG Immediate Post Op with CF Date of Surgery July 22, 2022 Pre & Post Diagnosis Operation Date: 07/22/22 07:50 Pre-Op Diagnosis: Small Bowel Obstruction Post-Op Diagnosis: Small Bowel Obstruction, adhesions I identified the patient and participated in the time-out.: Yes Procedure Operation Date: 07/22/22 07:50 Actual Procedures p Exploratory Laparotomy, Lysis of Adhesions, Appendectomy(Not Applicable) - Julio Garner MD, FACS Surgeon Julio Garner MD, FACS Evaluation Analyst Nurses Estimated Blood Loss 10 Findings Consistent with Post-Op Diagnosis Patient had adhesive bands in the right abdomen causing ileal adhesions and small bowel obstruction Small bowel completely viable Specimens Specimen Description: A. Appendix
--- NOTE | 2022-07-22 11:39 | Operative Report (OR) ---
DATE OF OPERATION: 07/22/2022. NAME OF OPERATION: Exploratory laparotomy with lysis of adhesions and appendectomy. PREOPERATIVE DIAGNOSIS: Small bowel obstruction. POSTOPERATIVE DIAGNOSIS: Small bowel obstruction with adhesions. STAFF SURGEON: Julio Garner MD. ANESTHESIA: General. DESCRIPTION OF PROCEDURE: The patient was brought in the operating room, placed on the operating tab le in supine position. Her abdomen was prepped and draped in the usual fashion. Moreira catheter was placed and NG tube was in place. Incision was made above and below the umbilicus, carrying dissectio n down into the abdomen encountering dilated small bowel. The small bowel was run from the ligament of Treitz to the ileum. The small bowel was diffusely dilated with fluid and gas and it was apparent that the obstruction was at the distal part of the ileum. There were two adhesive bands from the om entum and mesentery in that area causing severe adhesions of the ileum. These were all taken down an d then the area open into the cecum. The patient did have some evidence of diverticulosis, which may have contributed to the adhesions. We did remove her appendix, which appeared to be normal. It was ligated using 2-0 silk suture and then imbricated using 2-0 chromic suture. The mesoappendix was tr ansected and ligated using 2-0 silk suture. We did milk some of the gas and fluid back into the stom ach. The NG tube was just barely in the proximal stomach. It had to be removed and replaced and the n it was in good position with good function. All bowel was placed back into the abdomen. The fasci a was reapproximated using both running and interrupted #1 PDS suture. The skin was reapproximated u sing raj. The patient was transferred to recovery room in stable condition with Moreira in place a nd NG in place. Job ID: [id number]
--- NOTE | 2022-07-22 12:11 | Anesthesiology Progress Note ---
Date of Service July 22, 2022 Anesthesia Post Procedure Vital Signs Vital Signs: Temp Pulse Pulse Resp BP BP Pulse Ox 07/22/22 12:00 105 H 16 155/85 H 98 07/22/22 11:50 36.8 C 108 H 16 156/82 H 97 07/22/22 11:40 112 H 18 150/82 H 100 07/22/22 11:30 104 H 16 148/89 H 100 07/22/22 11:20 36.4 C L 113 H 18 156/98 H 100 07/22/22 08:00 07/22/22 08:33 37.0 C 110 H 22 167/103 H 97 07/22/22 07:29 36.5 C 92 H 18 194/80 H 98 07/21/22 21:17 37 C 83 18 181/94 H 95 07/21/22 15:27 36.4 C L 96 H 18 162/84 H 97 O2 Del Method O2 Flow Rate 07/22/22 12:00 Room Air 07/22/22 11:50 Room Air 07/22/22 11:40 Oxymask 4 07/22/22 11:30 Oxymask 4 07/22/22 11:20 Oxymask 6 07/22/22 08:00 Room Air 07/22/22 08:33 Room Air 07/22/22 07:29 Room Air 07/21/22 21:17 Room Air 07/21/22 15:27 Room Air Pain Intensity Head: Pain Intensity: 0 Abdomen: Pain Intensity: 5 Transfer of Care Handoff Completed per policy Notes Mental Status: alert / awake / arousable and participated in evaluation Nausea / Vomiting: adequately controlled Pain: adequately controlled Airway Patency, RR, SpO2: stable & adequate BP & HR: stable & adequate Hydration State: stable & adequate Anesthetic Complications: no major complications apparent and Pt Satisfied with anesthetic care
[2022-07-22] MEDS: FLUTICASONE/VILANTEROL 100/25MCG 14 PUFFS/INHALER INH SCH (12:29)
[2022-07-22] MEDS ORDERED: HYDROmorphone INJ 0.5 MG/0.5 ML SYR IV PRN (12:29)
[2022-07-22] MEDS: PANTOprazole 40 MG in SYRINGE 0 ML IV SCH (13:00)
[2022-07-22] MEDS: HYDROmorphone INJ 0.5 MG/0.5 ML SYR IV PRN ×2 (13:03→23:35)
[2022-07-22 15:34] LABS: Hematocrit (blood only) 35.7 % (37.0-47.0); Hemoglobin 12.9 g/dl (12.0-16.0); Mean Corpuscular Hemoglobin 32.3 pg (25.0-34.0); Mean Corpuscular Hgb Conc 36.1 g/dL (32.0-36.0); Mean Corpuscular Volume 89.3 fL (80.0-100.0); Mean Platelet Volume 9.9 fL (9.4-12.4); Platelet Count 302 K/uL (130-400); RDW Coefficient of Variation 11.8 % (11.5-14.5); RDW Standard Deviation 38.7 fL (36.4-46.3); White Blood Count 1.43 K/ul (4.8-10.8)
[2022-07-22] MEDS ORDERED: CLINOLIPID 20% IV FAT EMULSION 250 ML IV SCH (16:00)
[2022-07-22] MEDS: PERIPHERAL TPN IV SCH (16:36)
[2022-07-22] MEDS: [UNRECOGNIZED DRUG - OTHER] IV SCH (16:36)
[2022-07-22] MEDS: SODIUM CHLORIDE 0.9% 1000ML 1,000 ML IV SCH (17:20)
--- NOTE | 2022-07-22 18:10 | Hospitalist Progress Note ---
Date of Service July 22, 2022 Assessment & Plan (1) SBO (small bowel obstruction): Plan: Patient is a 76-year-old female who presented to the hospital for evaluation for nausea and vomiting. Patient found to have small bowel obstruction secondary to volvulus. Patient is currently comfortable and hemodynamically stabilized and has been admitted for bowel decompression and monitoring for resolution of symptoms. Patient with a small bowel obstruction secondary to adhesions and ileum. Surgical removal of adhesive bands without need for resection. Appendectomy performed. This was Dr. Garner 07/22/2022. Patient kept n.p.o. with supportive care (2) Bilateral malignant neoplasm of breast in female: Plan: - History noted in chart review. -Diagnosis of right-sided breast cancer in 2012 status postlumpectomy followed by radiation therapy and 5 years of tamoxifen therapy -Diagnosis of left breast malignancy in July 2020. Status post partial mastectomy in 09/05/2020 with negative sentinel lymph node biopsy. Radiation therapy completed 11/20/2020. -Since June 2021 has been on anastrozole for suppression therapy. Plan DVT prophylaxis: Lovenox CODE STATUS: Full code Admission and Anticipated Discharge Date Admission Date: July 19, 2022 Subjective Patient seen postoperatively. Reportedly lysis of adhesions to the distal ileum with an appendectomy, NG tube repositioned Physical Exam Physical Exam: abdominal exam is with h hypoactive bowel sounds bandages are in place soft and non tender Results & Data Results & Data Vital Signs (Past 12 Hours) Vital Signs Temp Pulse Pulse Resp BP Pulse Ox O2 Del Method 07/22/22 15:18 97.0 F L 120 H 18 126/74 95 Room Air 07/22/22 14:15 98.2 F 121 H 18 124/77 95 Room Air 07/22/22 13:22 97.0 F L 119 H 16 128/78 95 Room Air 07/22/22 12:50 97.2 F L 120 H 16 127/69 95 Room Air 07/22/22 12:19 98.2 F 114 H 16 146/59 H 97 Room Air 07/22/22 12:00 105 H 16 155/85 H 98 Room Air 07/22/22 11:50 98.2 F 108 H 16 156/82 H 97 Room Air 07/22/22 11:40 112 H 18 150/82 H 100 Oxymask 07/22/22 11:30 104 H 16 148/89 H 100 Oxymask 07/22/22 11:20 97.5 F L 113 H 18 156/98 H 100 Oxymask 07/22/22 08:00 Room Air 07/22/22 08:33 98.6 F 110 H 22 167/103 H 97 Room Air 07/22/22 07:29 97.7 F 92 H 18 194/80 H 98 Room Air O2 Flow Rate 07/22/22 15:18 07/22/22 14:15 07/22/22 13:22 07/22/22 12:50 07/22/22 12:19 07/22/22 12:00 07/22/22 11:50 07/22/22 11:40 4 07/22/22 11:30 4 07/22/22 11:20 6 07/22/22 08:00 07/22/22 08:33 07/22/22 07:29 Laboratory Results Reviewed CBC reviewed chemistry, if sodium remains low tomorrow may consider hypertonic saline. Patient given sodium phosphorus replacement on 07/22 PG Care Time/CCT Total # of Minutes Spent Total Time Spent with Patient: Total time spent is greater than 50% in coordination of care (as documented) at patient's floor/unit and/or counseling patient: Coding Level of Care Code 12739 SUB INP/OBS CARE 2/35MIN Diagnoses SBO (small bowel obstruction) K56.609 Bilateral malignant neoplasm of breast in female C50.911; C50.912
[2022-07-22] MEDS: STOP CLINOLIPID SCH (22:46)
[2022-07-23] MEDS: HYDROmorphone INJ 0.5 MG/0.5 ML SYR IV PRN ×4 (06:01→22:54)
--- NOTE | 2022-07-23 06:16 | Surgery Progress Note ---
Date of Service July 23, 2022 Assessment & Plan (1) Hx of exploratory laparotomy: Plan: NG tube in place with some bilious output Moreira catheter draining more clear light-colored urine Mild tachycardia I did add additional normal saline to her IV fluids in addition to the PPN No significant changes today-try to mobilize the patient and have her ambulate Would leave Moreira for now Admission and Anticipated Discharge Date Admission Date: July 19, 2022 Results & Data Vital Signs (Past 12 Hours) Vital Signs Temp Pulse Resp BP Pulse Ox O2 Del Method 07/23/22 02:57 36.8 C 104 H 18 141/80 H 95 Room Air 07/22/22 22:25 37.0 C 121 H 18 135/80 96 Room Air 07/22/22 20:00 Room Air 07/22/22 20:02 20 95 Room Air 07/22/22 19:55 36.9 C 121 H 22 147/84 H 95 Room Air PG Care Time/CCT Total # of Minutes Spent Total Time Spent with Patient: Total time spent is greater than 50% in coordination of care (as documented) at patient's floor/unit and/or counseling patient: Coding Level of Care Code 17776 Post Operative Follow-Up Diagnoses Hx of exploratory laparotomy Z98.890
[2022-07-23] MEDS ORDERED: SODIUM CHLORIDE 0.9% 1000ML 1,000 ML IV SCH (08:30)
[2022-07-23] MEDS: FLUTICASONE/VILANTEROL 100/25MCG 14 PUFFS/INHALER INH SCH (08:42)
[2022-07-23 08:44] LABS: Hematocrit (blood only) 35.5 % (37.0-47.0); Hemoglobin 12.8 g/dl (12.0-16.0); Mean Corpuscular Hemoglobin 32.2 pg (25.0-34.0); Mean Corpuscular Hgb Conc 36.1 g/dL (32.0-36.0); Mean Corpuscular Volume 89.2 fL (80.0-100.0); Mean Platelet Volume 9.9 fL (9.4-12.4); Platelet Count 304 K/uL (130-400); RDW Coefficient of Variation 12.2 % (11.5-14.5); RDW Standard Deviation 40.3 fL (36.4-46.3); Red Blood Count 3.98 M/uL (4.20-5.40); White Blood Count 4.43 K/ul (4.8-10.8)
[2022-07-23 08:57] LABS: Albumin Globulin Ratio 1.2 (0.9-2); Albumin Level 3.3 gm/dl (3.4-5.0); BUN Creatinine Ratio 36.2 (10-20); Bilirubin,Total 0.5 mg/dl (0.2-1.0); Calcium 8.4 mg/dl (8.6-10.3); Creatinine Clr Calc Pharmacy 83.1 ml/min; Est GFR (African American) 112.8 ml/min; Est GFR (Non-African American) 97.3 ml/min; Globulin 2.8 gm/dl (2.5-4.0); Phosphorus 2.1 mg/dl (2.5-4.9); Potassium 3.3 mmol/L (3.5-5.1); Total Protein 6.1 gm/dl (6.0-8.3)
[2022-07-23] MEDS: PANTOprazole 40 MG in SYRINGE 0 ML IV SCH (11:30)
[2022-07-23] MEDS: ONDANSETRON INJ 2 MG/ML 2 ML VIAL IV PRN ×2 (12:06→17:20)
[2022-07-23] MEDS: SODIUM CHLORIDE 0.9% 1000ML 1,000 ML IV SCH (12:07)
--- NOTE | 2022-07-23 13:49 | Hospitalist Progress Note ---
Date of Service July 23, 2022 Assessment & Plan (1) SBO (small bowel obstruction): Plan: Patient is a 76-year-old female who presented to the hospital for evaluation for nausea and vomiting. Patient found to have small bowel obstruction secondary to volvulus. Patient is currently comfortable and hemodynamically stabilized and has been admitted for bowel decompression and monitoring for resolution of symptoms. Patient with a small bowel obstruction secondary to adhesions and ileum. Surgical removal of adhesive bands without need for resection. Appendectomy performed. This was Dr. Garner 07/22/2022. Patient kept n.p.o. with supportive care surgery is managing IV fluids and advancement of diet (2) Bilateral malignant neoplasm of breast in female: Plan: - History noted in chart review. -Diagnosis of right-sided breast cancer in 2012 status postlumpectomy followed by radiation therapy and 5 years of tamoxifen therapy -Diagnosis of left breast malignancy in July 2020. Status post partial mastectomy in 09/05/2020 with negative sentinel lymph node biopsy. Radiation therapy completed 11/20/2020. -Since June 2021 has been on anastrozole for suppression therapy. Plan DVT prophylaxis: Lovenox CODE STATUS: Full code Admission and Anticipated Discharge Date Admission Date: July 19, 2022 Subjective Patient is in better spirits still has NG tube. Surgery is added additional normal saline to her PPN I think this could be the last day of her PPN diet advancement is commencing Physical Exam Physical Exam: abdominal exam continues with hypoactive bowel sounds soft and non tender Results & Data Results & Data Vital Signs (Past 12 Hours) Vital Signs Temp Pulse Resp BP Pulse Ox O2 Del Method 07/23/22 08:00 Room Air 07/23/22 07:19 98.2 F 100 H 16 138/81 96 Room Air 07/23/22 02:57 98.2 F 104 H 18 141/80 H 95 Room Air Laboratory Results Reviewed chemistry reviewed CBC PG Care Time/CCT Total # of Minutes Spent Total Time Spent with Patient: Total time spent is greater than 50% in coordination of care (as documented) at patient's floor/unit and/or counseling patient: Coding Level of Care Code 20761 SUB INP/OBS CARE 2/35MIN Diagnoses SBO (small bowel obstruction) K56.609 Bilateral malignant neoplasm of breast in female C50.911; C50.912
[2022-07-23] MEDS ORDERED: [UNRECOGNIZED DRUG - OTHER] IV SCH (16:00)
[2022-07-23] MEDS ORDERED: CLINOLIPID 20% IV FAT EMULSION 250 ML IV SCH (16:00)
[2022-07-23] MEDS ORDERED: PERIPHERAL TPN IV SCH (16:00)
[2022-07-23] MEDS: [UNRECOGNIZED DRUG - OTHER] IV SCH (16:39)
[2022-07-23] MEDS: PERIPHERAL TPN IV SCH (16:39)
[2022-07-23] MEDS: STOP CLINOLIPID SCH (22:15)
[2022-07-24] MEDS: LORazepam 2 MG/1 ML VIAL IV PRN ×2 (05:08→16:01)
--- NOTE | 2022-07-24 07:36 | Surgery Progress Note ---
Date of Service July 24, 2022 Assessment & Plan (1) Hx of exploratory laparotomy: Plan: Urine output much improved Receiving PPN-proteins will help with dilated small bowel/edema She does have some decreased bowel sounds-it will take her more days to recover her GI function We will try clamping her NG tube on and off to suction-output seems to be decreasing Requiring some IV narcotics Beginning to ambulate Would leave Moreira catheter today Pharmacy monitoring electrolytes including mag and Phos Admission and Anticipated Discharge Date Admission Date: July 19, 2022 Results & Data Vital Signs (Past 12 Hours) Vital Signs Temp Pulse Resp BP Pulse Ox O2 Del Method 07/23/22 21:55 Room Air 07/23/22 21:15 36.6 C 111 H 18 149/84 H 95 Room Air PG Care Time/CCT Total # of Minutes Spent Total Time Spent with Patient: Total time spent is greater than 50% in coordination of care (as documented) at patient's floor/unit and/or counseling patient: Coding Level of Care Code 57182 Post Operative Follow-Up Diagnoses Hx of exploratory laparotomy Z98.890
[2022-07-24 07:56] LABS: Mean Corpuscular Hemoglobin 32.3 pg (25.0-34.0); Mean Corpuscular Hgb Conc 35.3 g/dL (32.0-36.0); Mean Corpuscular Volume 91.4 fL (80.0-100.0); Mean Platelet Volume 9.6 fL (9.4-12.4); Platelet Count 272 K/uL (130-400); RDW Coefficient of Variation 12.4 % (11.5-14.5); RDW Standard Deviation 41.4 fL (36.4-46.3); Red Blood Count 3.72 M/uL (4.20-5.40)
[2022-07-24 08:11] LABS: Calcium 8.3 mg/dl (8.6-10.3); Creatinine Clr Calc Pharmacy 106.8 ml/min; Est GFR (African American) 118.9 ml/min; Est GFR (Non-African American) 102.6 ml/min; Magnesium 1.9 mg/dl (1.7-2.4); Phosphorus 2.2 mg/dl (2.5-4.9); Potassium 3.5 mmol/L (3.5-5.1)
[2022-07-24] MEDS ORDERED: SODIUM PHOSPHATE 3 MMOL/1 ML INFUSION IV STA (08:25)
[2022-07-24] MEDS: FLUTICASONE/VILANTEROL 100/25MCG 14 PUFFS/INHALER INH SCH (08:48)
[2022-07-24] MEDS ORDERED: SODIUM PHOSPHATE 24 MMOL in SODIUM CHLORIDE 0.9% 500 ML IV ONE (09:00)
[2022-07-24] MEDS: ONDANSETRON INJ 2 MG/ML 2 ML VIAL IV PRN ×2 (10:26→15:18)
--- NOTE | 2022-07-24 10:53 | Hospitalist Progress Note ---
Date of Service July 24, 2022 Assessment & Plan (1) SBO (small bowel obstruction): Plan: Patient is a 76-year-old female who presented to the hospital for evaluation for nausea and vomiting. Patient found to have small bowel obstruction secondary to volvulus. Patient is currently comfortable and hemodynamically stabilized and has been admitted for bowel decompression and monitoring for resolution of symptoms. Patient with a small bowel obstruction secondary to adhesions and ileum. Surgical removal of adhesive bands without need for resection. Appendectomy performed. This was Dr. Garner 07/22/2022. Patient kept n.p.o. with supportive care surgery is managing IV fluids and advancement of diet Patient will get an additional dose of zofran, will try to limit opiates. will consider schedule dose of tylenol. (2) Bilateral malignant neoplasm of breast in female: Plan: - History noted in chart review. -Diagnosis of right-sided breast cancer in 2012 status postlumpectomy followed by radiation therapy and 5 years of tamoxifen therapy -Diagnosis of left breast malignancy in July 2020. Status post partial mastectomy in 09/05/2020 with negative sentinel lymph node biopsy. Radiation therapy completed 11/20/2020. -Since June 2021 has been on anastrozole for suppression therapy. Plan DVT prophylaxis: Lovenox CODE STATUS: Full code Admission and Anticipated Discharge Date Admission Date: July 19, 2022 Subjective Patient is sitting up in chair. Patient complains of nausea, patient has less pain today. Review of Systems Review of Systems: All systems reviewed & are unremarkable except as noted in HPI & below Physical Exam Physical Exam: abdominal exam continues with hypoactive bowel sounds soft and non tender Results & Data Results & Data Vital Signs (Past 12 Hours) Vital Signs Temp Pulse Resp BP Pulse Ox O2 Del Method 07/24/22 07:40 36.6 C 100 H 16 176/80 H 96 Room Air PG Care Time/CCT Total # of Minutes Spent Total Time Spent with Patient: Total time spent is greater than 50% in coordination of care (as documented) at patient's floor/unit and/or counseling patient: Coding Level of Care Code 93857 SUB INP/OBS CARE 2/35MIN Diagnoses SBO (small bowel obstruction) K56.609 Bilateral malignant neoplasm of breast in female C50.911; C50.912
[2022-07-24] MEDS ORDERED: PROMETHAZINE HCL 12.5 MG in SODIUM CHLORIDE 0.9% 50 ML IV PRN (11:00)
--- NOTE | 2022-07-24 12:40 | XRay Report ---
XR KUB/Abdomen 1 view CLINICAL HISTORY: nausea TECHNIQUE: 1 view of the abdomen was obtained. Comparison: Comparison is made to abdomen radiographs 07/22/2022 FINDINGS: Satisfactory positioning of NG tube. The osseous structures are grossly unremarkable. Numerous gas-di stended loops of small bowel are seen measuring up to 49 mm. Small stool burden is seen. IMPRESSION: Redemonstration of small bowel obstruction. Satisfactory appearance of enteric tube. ACT 112: Negative or not required by law. Electronically signed by: Parish Douglas M.D. 07/24/2022 12:39 PM
[2022-07-24] MEDS: ACETAMINOPHEN 1,000 MG/100 ML VIAL IV SCH ×2 (12:45→20:26)
[2022-07-24] MEDS: PANTOprazole 40 MG in SYRINGE 0 ML IV SCH (12:46)
--- NOTE | 2022-07-24 13:09 | Surgery Progress Note ---
Date of Service July 24, 2022 Assessment & Plan (1) Hx of exploratory laparotomy: Plan: KUB shows expected ileus- much gas Min NG output- good placement No change in management- will take some time would benefit from Picc line added phenergan cont ppn , may adv to Tpn with Picc Admission and Anticipated Discharge Date Admission Date: July 19, 2022 Results & Data Vital Signs (Past 12 Hours) Vital Signs Temp Pulse Resp BP Pulse Ox O2 Del Method 07/24/22 07:40 36.6 C 100 H 16 176/80 H 96 Room Air PG Care Time/CCT Total # of Minutes Spent Total Time Spent with Patient: Total time spent is greater than 50% in coordination of care (as documented) at patient's floor/unit and/or counseling patient: Coding Level of Care Code 05832 Post Operative Follow-Up Diagnoses Hx of exploratory laparotomy Z98.890
[2022-07-24] MEDS ORDERED: CLINOLIPID 20% IV FAT EMULSION 250 ML IV SCH (16:00)
[2022-07-24] MEDS ORDERED: PERIPHERAL TPN IV SCH (16:00)
[2022-07-24] MEDS ORDERED: [UNRECOGNIZED DRUG - OTHER] IV SCH (16:00)
[2022-07-24] MEDS: STOP CLINOLIPID SCH (22:26)
[2022-07-25] MEDS ORDERED: HYALURONIDASE HUMAN 150 UNIT/ML INJ SQ ONE (01:45)
[2022-07-25] MEDS ORDERED: HYALURONIDASE SQ ONE (01:45)
[2022-07-25] MEDS: ACETAMINOPHEN 1,000 MG/100 ML VIAL IV SCH ×3 (03:47→19:50)
--- NOTE | 2022-07-25 06:22 | Communication Note ---
Date of Service: July 25, 2022 Called to bedside due to extravasation of PPN at IV site extending mid upper arm. Per pharmacy recommendations, patient to be injected subcutaneously with hyaluronidase. Patient was informed of the risks and benefits of the procedure. Risks including but not limited to infection, pain, and bleeding. Benefits include breakdown of PPN proximal to allow for better absorption into the tissue. Patient gave verbal consent. Patient was injected with 25 units of hyaluronidase into 5 separate injections at 0.3mL/inj at the leading edge of the extravasation in a clockwise manner. Each injection site was sterilized with alcohol wipes prior to injection. Patient tolerated the procedure well. 3 injection sites were bleeding and covered with sterile bandages. No complications. The limb restriction was then removed from her other arm as patient had a lumpectomy of that breast not a mastectomy that had been done approximately 8 years ago, so limb restriction not necessary. New IV site placed in right arm to continue PPN infusion. Recommend continuing with transition to PICC line so patient may receive TPN instead and reduce risk of future extravasation.
[2022-07-25] MEDS ORDERED: MINERAL OIL 30 ML UDC PO ONE (06:41)
[2022-07-25] MEDS ORDERED: bisacodyL 10 MG SUPP PR ONE ×2 (06:44→09:02)
[2022-07-25] MEDS ORDERED: ACETAMINOPHEN 1,000 MG/100 ML VIAL IV PRN (07:06)
[2022-07-25] MEDS ORDERED: KETOROLAC TROMETHAMINE 15 MG/ML VIAL IV PRN (07:06)
--- NOTE | 2022-07-25 07:14 | Surgery Progress Note ---
Date of Service July 25, 2022 Assessment & Plan (1) Hx of exploratory laparotomy: Plan: Patient with ileus-some bowel sounds but decreased- Minimal output from NG tube but some bilious-continue today Her heart rate is normal, and her urine output is excellent Has not taken any significant pain medication for some time We will add IV acetaminophen and Toradol to try to decrease narcotics Hopefully a PICC line can be placed in her right arm/left arm had extravasation of PPN Order for PICC placed We will try some senna syrup and mineral oil, also give her a Dulcolax suppository Walking would be very helpful Hopefully can switch to TPN if PICC line placed DC IV antibiotics Admission and Anticipated Discharge Date Admission Date: July 19, 2022 Results & Data Vital Signs (Past 12 Hours) Vital Signs Temp Pulse Resp BP Pulse Ox O2 Del Method 07/24/22 22:00 Room Air 07/24/22 21:17 36.4 C L 88 18 165/79 H 95 Room Air PG Care Time/CCT Total # of Minutes Spent Total Time Spent with Patient: Total time spent is greater than 50% in coordination of care (as documented) at patient's floor/unit and/or counseling patient: Coding Level of Care Code 49970 Post Operative Follow-Up Diagnoses Hx of exploratory laparotomy Z98.890
[2022-07-25] MEDS: SENNOSIDES 8.8 MG/5 ML UDC PO SCH ×2 (08:59→23:01)
[2022-07-25] MEDS: FLUTICASONE/VILANTEROL 100/25MCG 14 PUFFS/INHALER INH SCH (08:59)
[2022-07-25] MEDS: ENOXAPARIN INJ 40 MG/0.4 ML SYR SQ SCH (09:02)
[2022-07-25 09:27] LABS: BUN Creatinine Ratio 56.1 (10-20); Calcium 8.4 mg/dl (8.6-10.3); Creatinine Clr Calc Pharmacy 104.2 ml/min; Est GFR (Non-African American) 101.8 ml/min; Magnesium 2.1 mg/dl (1.7-2.4); Phosphorus 2.8 mg/dl (2.5-4.9); Potassium 3.1 mmol/L (3.5-5.1)
[2022-07-25 09:58] LABS: Hemoglobin 12.5 g/dl (12.0-16.0); Mean Corpuscular Hemoglobin 32.2 pg (25.0-34.0); Mean Corpuscular Hgb Conc 34.7 g/dL (32.0-36.0); Mean Corpuscular Volume 92.8 fL (80.0-100.0); Mean Platelet Volume 9.8 fL (9.4-12.4); Platelet Count 315 K/uL (130-400); RDW Coefficient of Variation 12.5 % (11.5-14.5); RDW Standard Deviation 42.6 fL (36.4-46.3); Red Blood Count 3.88 M/uL (4.20-5.40); White Blood Count 6.06 K/ul (4.8-10.8)
[2022-07-25] MEDS: POTASSIUM CHLORIDE / WTR 10 MEQ/100 ML PLCT IV SCH ×3 (14:56→16:54)
[2022-07-25] MEDS: PANTOprazole 40 MG in SYRINGE 0 ML IV SCH (14:57)
[2022-07-25] MEDS ORDERED: [UNRECOGNIZED DRUG - OTHER] IV SCH (16:00)
[2022-07-25] MEDS ORDERED: PERIPHERAL TPN IV SCH (16:00)
[2022-07-25] MEDS ORDERED: CLINOLIPID 20% IV FAT EMULSION 250 ML IV SCH (16:00)
[2022-07-25] MEDS: ONDANSETRON INJ 2 MG/ML 2 ML VIAL IV PRN (19:52)
[2022-07-25] MEDS: LORazepam 2 MG/1 ML VIAL IV PRN (21:27)
[2022-07-25] MEDS: STOP CLINOLIPID SCH (22:55)
--- NOTE | 2022-07-25 23:21 | Hospitalist Progress Note ---
Date of Service July 25, 2022 Assessment & Plan (1) SBO (small bowel obstruction): Plan: Patient is a 76-year-old female who presented to the hospital for evaluation for nausea and vomiting. Patient found to have small bowel obstruction secondary to volvulus. Patient is currently comfortable and hemodynamically stabilized and has been admitted for bowel decompression and monitoring for resolution of symptoms. Patient with a small bowel obstruction secondary to adhesions and ileum. Surgical removal of adhesive bands without need for resection. Appendectomy performed. This was Dr. Garner 07/22/2022. Patient kept n.p.o. with supportive care surgery is managing IV fluids and advancement of diet Patient will get an additional dose of zofran, will try to limit opiates. placed on schedule dose of tylenol. Passing small amounts of stool, slowly improving Clamping NG tube. Obtained PICC line consent, order placed. Patient currently on PPn, kai transition to TPN. (2) Bilateral malignant neoplasm of breast in female: Plan: - History noted in chart review. -Diagnosis of right-sided breast cancer in 2012 status postlumpectomy followed by radiation therapy and 5 years of tamoxifen therapy -Diagnosis of left breast malignancy in July 2020. Status post partial mastectomy in 09/05/2020 with negative sentinel lymph node biopsy. Radiation therapy completed 11/20/2020. -Since June 2021 has been on anastrozole for suppression therapy. Plan DVT prophylaxis: Lovenox CODE STATUS: Full code Admission and Anticipated Discharge Date Admission Date: July 19, 2022 Subjective 76 yo female still reports feeling misearble, however, she feels a slight improvement today. Less nausea. Patient also reports passing small amounts of stool. Review of Systems Review of Systems: All systems reviewed & are unremarkable except as noted in HPI & below Physical Exam Physical Exam: abdominal exam continues with hypoactive bowel sounds soft and non tender Results & Data Results & Data Vital Signs (Past 12 Hours) Vital Signs Temp Pulse Resp BP Pulse Ox O2 Del Method 07/25/22 21:20 36.9 C 87 20 185/82 H 98 Room Air 07/25/22 15:40 36.5 C 78 16 184/82 H 95 Room Air PG Care Time/CCT Total # of Minutes Spent Total Time Spent with Patient: Total time spent is greater than 50% in coordination of care (as documented) at patient's floor/unit and/or counseling patient: Coding Level of Care Code 80164 SUB INP/OBS CARE Diagnoses SBO (small bowel obstruction) K56.609 Bilateral malignant neoplasm of breast in female C50.911; C50.912
[2022-07-26] MEDS: ACETAMINOPHEN 1,000 MG/100 ML VIAL IV SCH ×2 (04:15→22:06)
[2022-07-26] MEDS: HYDROmorphone INJ 0.5 MG/0.5 ML SYR IV PRN (04:25)
[2022-07-26] MEDS ORDERED: SOD PHOSPHATE/SOD BIPHOSPHATE ENEMA 132 ML BTL PR ONE ×2 (08:07→11:15)
--- NOTE | 2022-07-26 08:12 | Surgery Progress Note ---
Date of Service July 26, 2022 Assessment & Plan (1) Hx of exploratory laparotomy: Plan: Patient with persistent ileus-she does have some bowel sounds mostly high- pitched from dilated small bowel Her vital signs are stable-heart rate normal Urine output is very good-May consider removing the Moreira catheter in the next 24 to 48 hours Patient's bladder is very large-may have some atony-noted on CT scan and also Intra-Op NG tube with bilious output of 100 cc over each shift-we will clamp longer- consider removal when bowel function improves We will give her a Fleet enema today-she does have a history of constipation and has significant stool in her colon PICC line in place-continue TPN-urine output a good indication of protein status and should help with decreased bowel edema Try to decrease narcotics as she did receive some during the night-try to use Toradol and acetaminophen if needed Also she has significant anxiety and has lorazepam ordered- Dr. Jones is covering over the weekend Admission and Anticipated Discharge Date Admission Date: July 19, 2022 Results & Data Vital Signs (Past 12 Hours) Vital Signs Temp Pulse Resp BP Pulse Ox O2 Del Method 07/26/22 07:46 36.6 C 101 H 16 149/79 H 96 Room Air 07/25/22 21:55 175/84 H 07/25/22 21:20 36.9 C 87 20 185/82 H 98 Room Air PG Care Time/CCT Total # of Minutes Spent Total Time Spent with Patient: Total time spent is greater than 50% in coordination of care (as documented) at patient's floor/unit and/or counseling patient: Coding Level of Care Code 90872 Post Operative Follow-Up Diagnoses Hx of exploratory laparotomy Z98.890
[2022-07-26] MEDS: FLUTICASONE/VILANTEROL 100/25MCG 14 PUFFS/INHALER INH SCH (09:02)
[2022-07-26] MEDS: SENNOSIDES 8.8 MG/5 ML UDC PO SCH ×2 (09:02→20:16)
[2022-07-26] MEDS: ENOXAPARIN INJ 40 MG/0.4 ML SYR SQ SCH (09:03)
[2022-07-26] MEDS ORDERED: MINERAL OIL 30 ML UDC NG ONE (09:15)
[2022-07-26] MEDS: PANTOprazole 40 MG in SYRINGE 0 ML IV SCH (12:11)
[2022-07-26] MEDS: POTASSIUM CHLORIDE / WTR 10 MEQ/100 ML PLCT IV SCH ×4 (12:18→16:19)
[2022-07-26] MEDS: ONDANSETRON INJ 2 MG/ML 2 ML VIAL IV PRN (15:20)
[2022-07-26] MEDS ORDERED: PERIPHERAL TPN IV SCH (16:00)
[2022-07-26] MEDS ORDERED: CLINOLIPID 20% IV FAT EMULSION 250 ML IV SCH (16:00)
[2022-07-26] MEDS ORDERED: [UNRECOGNIZED DRUG - OTHER] IV SCH (16:00)
--- NOTE | 2022-07-26 16:01 | XRay Report ---
KUB HISTORY: Acute generalized abdominal pain with reported obstruction small bowel obstruction COMPARISON: KUB 07/24/2022 FINDINGS: Midline skin raj. Distal tip of enteric tube projects over the expected location of the distal stomach. Air-filled distended loops of large and small bowel are again noted. Small bowel loo ps measure up to approximately 4.5 cm, previously 4.9 cm. No renal calculi. No ureteral calculi. No pneumoperitoneum or pneumatosis. No fracture. IMPRESSION: 1. Persistent large and small bowel dilation which may represent a postoperative ileus. Distal obstru ction could appear similarly. Continued follow-up recommended. 2. Distal tip of enteric tube projects over the distal stomach. ACT 112: Negative or not required by law. The above report was generated using voice recognition software. It may contain grammatical, syntax o r spelling errors. Electronically signed by: Elmer Fairbanks M.D. 07/26/2022 4:00 PM
[2022-07-26] MEDS: SODIUM CHLORIDE 0.9% 1000ML 1,000 ML IV SCH (16:22)
[2022-07-26] MEDS: LORazepam 2 MG/1 ML VIAL IV PRN (17:25)
[2022-07-26] MEDS: STOP CLINOLIPID SCH (22:06)
--- NOTE | 2022-07-26 23:05 | Hospitalist Progress Note ---
Date of Service July 26, 2022 Assessment & Plan (1) SBO (small bowel obstruction): Plan: Patient is a 76-year-old female who presented to the hospital for evaluation for nausea and vomiting. Patient found to have small bowel obstruction secondary to volvulus. Patient is currently comfortable and hemodynamically stabilized and has been admitted for bowel decompression and monitoring for resolution of symptoms. Patient with a small bowel obstruction secondary to adhesions and ileum. Surgical removal of adhesive bands without need for resection. Appendectomy performed. This was Dr. Garner 07/22/2022. Patient kept n.p.o. with supportive care surgery is managing IV fluids and advancement of diet Patient will get an additional dose of zofran, will try to limit opiates. placed on schedule dose of tylenol. Passing small amounts of stool, slowly improving Clamping NG tube. Obtained PICC line consent, order placed. Patient currently on PPn, kai transition to TPN. stopped dilaudid PRN, continue tylenol and placed on ketrolac PRN. (2) Bilateral malignant neoplasm of breast in female: Plan: - History noted in chart review. -Diagnosis of right-sided breast cancer in 2012 status postlumpectomy followed by radiation therapy and 5 years of tamoxifen therapy -Diagnosis of left breast malignancy in July 2020. Status post partial mastectomy in 09/05/2020 with negative sentinel lymph node biopsy. Radiation therapy completed 11/20/2020. -Since June 2021 has been on anastrozole for suppression therapy. Plan DVT prophylaxis: Lovenox CODE STATUS: Full code Admission and Anticipated Discharge Date Admission Date: July 19, 2022 Subjective Patient reports to be very nauseous. Review of Systems Review of Systems: All systems reviewed & are unremarkable except as noted in HPI & below Physical Exam Physical Exam: abdominal exam continues with hypoactive bowel sounds soft and non tender Results & Data Results & Data Vital Signs (Past 12 Hours) Vital Signs Temp Pulse Pulse Resp BP Pulse Ox O2 Del Method 07/26/22 20:21 36.8 C 100 H 18 152/76 H 95 Room Air 07/26/22 16:21 36.9 C 108 H 16 176/94 H 99 Room Air PG Care Time/CCT Total # of Minutes Spent Total Time Spent with Patient: Total time spent is greater than 50% in coordination of care (as documented) at patient's floor/unit and/or counseling patient: Coding Level of Care Code 96084 SUB INP/OBS CARE MIN Diagnoses SBO (small bowel obstruction) K56.609 Bilateral malignant neoplasm of breast in female C50.911; C50.912
[2022-07-27] MEDS: LORazepam 2 MG/1 ML VIAL IV PRN (00:42)
[2022-07-27] MEDS: ACETAMINOPHEN 1,000 MG/100 ML VIAL IV SCH ×3 (05:11→22:08)
[2022-07-27 08:53] LABS: BUN Creatinine Ratio 46.2 (10-20); Calcium 8.8 mg/dl (8.6-10.3); Creatinine Clr Calc Pharmacy 109.6 ml/min; Est GFR (African American) 119.9 ml/min; Est GFR (Non-African American) 103.5 ml/min; Magnesium 1.8 mg/dl (1.7-2.4); Phosphorus 3.5 mg/dl (2.5-4.9); Potassium 4.3 mmol/L (3.5-5.1)
[2022-07-27] MEDS: SENNOSIDES 8.8 MG/5 ML UDC PO SCH ×2 (09:42→22:07)
[2022-07-27] MEDS: FLUTICASONE/VILANTEROL 100/25MCG 14 PUFFS/INHALER INH SCH (09:42)
[2022-07-27] MEDS: ENOXAPARIN INJ 40 MG/0.4 ML SYR SQ SCH (09:43)
--- NOTE | 2022-07-27 10:09 | Surgery Progress Note ---
Date of Service July 27, 2022 Assessment & Plan (1) Hx of exploratory laparotomy: Plan: slow progress ngt clamped intermittently abdomen still distended but better ambulate con't TPN Present on Admission?: Yes Admission and Anticipated Discharge Date Admission Date: July 19, 2022 Subjective passing flatus feels a little better didn't walk much yesterday cortes placed, will remove on TPN Review of Systems Constitutional: no fever and no chills Respiratory: no cough and no dyspnea Cardiovascular: no chest pain Gastrointestinal: + abdominal pain (mild); no nausea and no vomiting Genitourinary: no dysuria Musculoskeletal: no back pain Neurologic: + generalized weakness; no localized weakness Psychiatric: no behavioral changes Physical Exam Constitutional: + thin Eyes: PERRL, conjunctivae normal, anicteric sclerae ENMT: external ear and nose normal, oropharynx normal Respiratory: normal respiratory effort, lungs clear to auscultation Cardiovascular: RRR, no murmur, no edema Gastrointestinal (Abdomen): Inspection/Auscultation: abdomen normal to inspection, + abdomen distended, normal bowel sounds and + abdominal surgical incision Percussion/Palpation: abdomen soft; abdomen nontender, no guarding and abdomen not rigid Musculoskeletal: Head/Neck/Chest: normocephalic and head atraumatic Skin: no rashes, warm and dry Results & Data Vital Signs (Past 12 Hours) Vital Signs Temp Pulse Resp BP Pulse Ox O2 Del Method 07/27/22 07:34 36.8 C 90 16 173/92 H 99 Room Air
[2022-07-27] MEDS: PANTOprazole 40 MG in SYRINGE 0 ML IV SCH (11:49)
[2022-07-27] MEDS ORDERED: CENTRAL TPN IV SCH (16:00)
[2022-07-27] MEDS ORDERED: [UNRECOGNIZED DRUG - OTHER] IV SCH (16:00)
[2022-07-27] MEDS ORDERED: CLINOLIPID 20% IV FAT EMULSION 250 ML IV SCH (16:00)
[2022-07-27] MEDS: SODIUM CHLORIDE 0.9% 1000ML 1,000 ML IV SCH (16:07)
[2022-07-27] MEDS ORDERED: LORazepam 0.5 MG TAB SL SCH (21:00)
[2022-07-27] MEDS: LORazepam 1 MG TAB SL SCH (22:02)
[2022-07-27] MEDS: STOP CLINOLIPID SCH (22:08)
--- NOTE | 2022-07-27 23:27 | Hospitalist Progress Note ---
Date of Service July 27, 2022 Assessment & Plan (1) SBO (small bowel obstruction): Plan: Patient is a 76-year-old female who presented to the hospital for evaluation for nausea and vomiting. Patient found to have small bowel obstruction secondary to volvulus. Patient is currently comfortable and hemodynamically stabilized and has been admitted for bowel decompression and monitoring for resolution of symptoms. Patient with a small bowel obstruction secondary to adhesions and ileum. Surgical removal of adhesive bands without need for resection. Appendectomy performed. This was Dr. Garner 07/22/2022. Patient kept n.p.o. with supportive care surgery is managing IV fluids and advancement of diet Patient will get an additional dose of zofran, will try to limit opiates. placed on schedule dose of tylenol. Patient has a large BM on 07/26 Obtained PICC line consent, order placed. Patient currently on TPN, as she is tolerating more of a diet, will transition her off TPN. stopped dilaudid PRN, continue tylenol and placed on ketrolac PRN. (2) Bilateral malignant neoplasm of breast in female: Plan: - History noted in chart review. -Diagnosis of right-sided breast cancer in 2012 status postlumpectomy followed by radiation therapy and 5 years of tamoxifen therapy -Diagnosis of left breast malignancy in July 2020. Status post partial mastectomy in 09/05/2020 with negative sentinel lymph node biopsy. Radiation therapy completed 11/20/2020. -Since June 2021 has been on anastrozole for suppression therapy. Plan DVT prophylaxis: Lovenox CODE STATUS: Full code Admission and Anticipated Discharge Date Admission Date: July 19, 2022 Subjective 76 yo female reports no new symptoms She does appear to be more comfortable. She is passing gas. Review of Systems Review of Systems: All systems reviewed & are unremarkable except as noted in HPI & below Physical Exam Physical Exam: abdominal exam continues with hypoactive bowel sounds soft and non tender Results & Data Results & Data Vital Signs (Past 12 Hours) Vital Signs Temp Pulse Pulse Resp BP Pulse Ox O2 Del Method 07/27/22 21:12 36.7 C 91 H 18 178/92 H 98 Room Air 07/27/22 15:12 37.2 C 89 18 151/75 H 98 Room Air PG Care Time/CCT Total # of Minutes Spent Total Time Spent with Patient: Total time spent is greater than 50% in coordination of care (as documented) at patient's floor/unit and/or counseling patient: Coding Level of Care Code 22841 SUB INP/OBS CARE Diagnoses SBO (small bowel obstruction) K56.609 Bilateral malignant neoplasm of breast in female C50.911; C50.912
[2022-07-28] MEDS: ACETAMINOPHEN 1,000 MG/100 ML VIAL IV SCH ×3 (05:34→22:07)
[2022-07-28 06:19] LABS: Hematocrit (blood only) 31.9 % (37.0-47.0); Hemoglobin 11.4 g/dl (12.0-16.0); Mean Corpuscular Hemoglobin 31.8 pg (25.0-34.0); Mean Corpuscular Hgb Conc 35.7 g/dL (32.0-36.0); Mean Corpuscular Volume 88.9 fL (80.0-100.0); Mean Platelet Volume 9.8 fL (9.4-12.4); Platelet Count 353 K/uL (130-400); RDW Coefficient of Variation 12.7 % (11.5-14.5); RDW Standard Deviation 41.3 fL (36.4-46.3); Red Blood Count 3.59 M/uL (4.20-5.40); White Blood Count 8.92 K/ul (4.8-10.8)
[2022-07-28 06:31] LABS: BUN Creatinine Ratio 42.5 (10-20); Calcium 8.7 mg/dl (8.6-10.3); Creatinine Clr Calc Pharmacy 106.8 ml/min; Est GFR (African American) 118.9 ml/min; Est GFR (Non-African American) 102.6 ml/min; Potassium 4.4 mmol/L (3.5-5.1)
[2022-07-28] MEDS: ENOXAPARIN INJ 40 MG/0.4 ML SYR SQ SCH (08:04)
[2022-07-28] MEDS: FLUTICASONE/VILANTEROL 100/25MCG 14 PUFFS/INHALER INH SCH (08:04)
[2022-07-28] MEDS: SENNOSIDES 8.8 MG/5 ML UDC PO SCH (08:04)
--- NOTE | 2022-07-28 10:17 | Surgery Progress Note ---
Date of Service July 28, 2022 Assessment & Plan (1) Hx of exploratory laparotomy: Plan: bowel function returning remove ngt clears sparinglambulate Present on Admission?: Yes Admission and Anticipated Discharge Date Admission Date: July 19, 2022 Subjective feels better BM yesterday passing flatus ngt drainage down Review of Systems Constitutional: no fever and no chills Eyes: no problem reported Respiratory: no cough and no dyspnea Cardiovascular: no chest pain Gastrointestinal: + abdominal pain; no nausea and no vomiting Genitourinary: no dysuria Musculoskeletal: no back pain Integumentary: no problem reported Neurologic: + generalized weakness; no localized weakness Psychiatric: no behavioral changes Physical Exam Constitutional: + thin Respiratory: normal respiratory effort, lungs clear to auscultation Cardiovascular: RRR, no murmur, no edema Gastrointestinal (Abdomen): Inspection/Auscultation: abdomen normal to inspection and normal bowel sounds; abdomen not distended Percussion/Palpation: abdomen soft; abdomen nontender, no guarding and abdomen not rigid Skin: no rashes, warm and dry Results & Data Vital Signs (Past 12 Hours) Vital Signs Temp Pulse Resp BP Pulse Ox O2 Del Method 07/28/22 07:37 36.6 C 83 16 158/82 H 99 Room Air
[2022-07-28] MEDS: PANTOprazole 40 MG in SYRINGE 0 ML IV SCH (11:07)
--- NOTE | 2022-07-28 11:57 | XRay Report ---
KUB CLINICAL HISTORY: Small bowel obstruction. FINDINGS: 2 AP, portable, supine abdominal radiographs are compared to study dated 07/26/2022 and eber elated with abdominal CT dated 07/18/2022. The enteric tube has been removed. Midline skin clips are ag ain noted. There is gaseous distention of the small bowel loops which measure up to 4.6 cm in diamete r. Gas is noted within the colon. No evidence of intraperitoneal free air is seen on these supine stewart ges. There are no abnormal abdominal calcifications. The skeletal structures are osteopenic and appea r intact. There is moderate lumbosacral spondylosis. IMPRESSION: 1. Persistent gaseous distention of the small bowel loops it is similar to the 07/26/2022 examination. Gas is also seen within the colon and this may represent a postoperative ileus. A small bowel obstru ction could appear similar and is not excluded. Clinical correlation will be required. 2. The enteric tube has been removed. Electronically signed by: Jean Pierre Bauman M.D. 07/28/2022 11:55 AM
[2022-07-28] MEDS: SODIUM CHLORIDE 0.9% 1000ML 1,000 ML IV SCH (15:52)
[2022-07-28] MEDS ORDERED: CENTRAL TPN IV SCH (16:00)
[2022-07-28] MEDS ORDERED: CLINOLIPID 20% IV FAT EMULSION 250 ML IV SCH (16:00)
[2022-07-28] MEDS ORDERED: [UNRECOGNIZED DRUG - OTHER] IV SCH (16:00)
[2022-07-28] MEDS: INSULIN ASPART PER UNIT CHARGE SC SCH (18:05)
[2022-07-28] MEDS: LORazepam 1 MG TAB SL SCH (20:22)
[2022-07-28] MEDS: STOP CLINOLIPID SCH (22:07)
[2022-07-28] MEDS: SENNA 8.6 MG TAB PO SCH (22:07)
--- NOTE | 2022-07-28 22:10 | Hospitalist Progress Note ---
Date of Service July 28, 2022 Assessment & Plan (1) SBO (small bowel obstruction): Plan: Patient is a 76-year-old female who presented to the hospital for evaluation for nausea and vomiting. Patient found to have small bowel obstruction secondary to volvulus. Patient is currently comfortable and hemodynamically stabilized and has been admitted for bowel decompression and monitoring for resolution of symptoms. Patient with a small bowel obstruction secondary to adhesions and ileum. Surgical removal of adhesive bands without need for resection. Appendectomy performed. This was Dr. Garner 07/22/2022. Patient kept n.p.o. with supportive care surgery is managing IV fluids and advancement of diet Patient will get an additional dose of zofran, will try to limit opiates. placed on schedule dose of tylenol. Patient has a large BM on 07/26 Obtained PICC line consent, order placed. Patient currently on TPN, as she is tolerating more of a diet, will transition her off TPN. stopped dilaudid PRN, continue tylenol and placed on ketrolac PRN. NG tube has been removed. Patient tolerating clear diet. (2) Bilateral malignant neoplasm of breast in female: Plan: - History noted in chart review. -Diagnosis of right-sided breast cancer in 2012 status postlumpectomy followed by radiation therapy and 5 years of tamoxifen therapy -Diagnosis of left breast malignancy in July 2020. Status post partial mastectomy in 09/05/2020 with negative sentinel lymph node biopsy. Radiation therapy completed 11/20/2020. -Since June 2021 has been on anastrozole for suppression therapy. Plan DVT prophylaxis: Lovenox CODE STATUS: Full code Admission and Anticipated Discharge Date Admission Date: July 19, 2022 Subjective Patient reports having a bowel movement this AM. Patient has no new symptoms. Pain appears improved. Review of Systems Review of Systems: All systems reviewed & are unremarkable except as noted in HPI & below Physical Exam Physical Exam: abdominal exam continues with hypoactive bowel sounds soft and non tender Results & Data Results & Data Vital Signs (Past 12 Hours) Vital Signs Temp Pulse Resp BP Pulse Ox O2 Del Method 07/28/22 20:11 36.9 C 103 H 18 130/77 95 Room Air 07/28/22 14:45 36.7 C 98 H 18 142/79 H 100 Room Air PG Care Time/CCT Total # of Minutes Spent Total Time Spent with Patient: Total time spent is greater than 50% in coordination of care (as documented) at patient's floor/unit and/or counseling patient: Coding Level of Care Code 72723 SUB INP/OBS CARE 235MIN Diagnoses SBO (small bowel obstruction) K56.609 Bilateral malignant neoplasm of breast in female C50.911; C50.912
[2022-07-29] MEDS: INSULIN ASPART PER UNIT CHARGE SC SCH ×4 (01:29→18:25)
[2022-07-29] MEDS: ACETAMINOPHEN 1,000 MG/100 ML VIAL IV SCH ×2 (05:47→15:04)
[2022-07-29] MEDS ORDERED: MINERAL OIL 30 ML UDC PO ONE (05:49)
--- NOTE | 2022-07-29 06:30 | Surgery Progress Note ---
Date of Service July 29, 2022 Assessment & Plan (1) Hx of exploratory laparotomy: Plan: Tolerating NG tube removed Taking some clear liquids-we will advance to full liquids Urine output 1400 per 1 shift On TPN-we will continue this until we are sure she can take p.o. well As dietitian to see for low fiber diet at home Continue mobilization/walking We will continue senna syrup twice daily and occasional mineral oil until sure her bowels are moving well She has a history of constipation and had significant stool in her colon Possibly 2-3 more days in the hospital depending on her progress Admission and Anticipated Discharge Date Admission Date: July 19, 2022 Results & Data Vital Signs (Past 12 Hours) Vital Signs Temp Pulse Resp BP Pulse Ox O2 Del Method 07/28/22 20:11 36.9 C 103 H 18 130/77 95 Room Air PG Care Time/CCT Total # of Minutes Spent Total Time Spent with Patient: Total time spent is greater than 50% in coordination of care (as documented) at patient's floor/unit and/or counseling patient: Coding Level of Care Code 84531 Post Operative Follow-Up Diagnoses Hx of exploratory laparotomy Z98.890
[2022-07-29] MEDS: ENOXAPARIN INJ 40 MG/0.4 ML SYR SQ SCH (07:41)
[2022-07-29] MEDS: FLUTICASONE/VILANTEROL 100/25MCG 14 PUFFS/INHALER INH SCH (07:42)
[2022-07-29] MEDS: SENNA 8.6 MG TAB PO SCH ×2 (07:42→20:32)
[2022-07-29] MEDS: SENNOSIDES 8.8 MG/5 ML UDC PO SCH ×2 (07:42→20:32)
[2022-07-29 09:09] LABS: Hematocrit (blood only) 31.6 % (37.0-47.0); Hemoglobin 11.1 g/dl (12.0-16.0); Mean Corpuscular Hemoglobin 32.2 pg (25.0-34.0); Mean Corpuscular Hgb Conc 35.1 g/dL (32.0-36.0); Mean Corpuscular Volume 91.6 fL (80.0-100.0); Mean Platelet Volume 9.4 fL (9.4-12.4); Platelet Count 361 K/uL (130-400); RDW Coefficient of Variation 12.9 % (11.5-14.5); Red Blood Count 3.45 M/uL (4.20-5.40)
[2022-07-29 09:23] LABS: Bilirubin,Total 0.3 mg/dl (0.2-1.0)
[2022-07-29 09:24] LABS: BUN Creatinine Ratio 38.8 (10-20); Calcium 8.3 mg/dl (8.6-10.3); Creatinine Clr Calc Pharmacy 87.2 ml/min; Est GFR (African American) 111.2 ml/min; Phosphorus 3.7 mg/dl (2.5-4.9); Potassium 4.3 mmol/L (3.5-5.1)
[2022-07-29] MEDS: PANTOprazole 40 MG in SYRINGE 0 ML IV SCH (12:02)
[2022-07-29] MEDS: SODIUM CHLORIDE 0.9% 1000ML 1,000 ML IV SCH (15:51)
[2022-07-29] MEDS ORDERED: [UNRECOGNIZED DRUG - OTHER] IV SCH (16:00)
[2022-07-29] MEDS ORDERED: CLINOLIPID 20% IV FAT EMULSION 250 ML IV SCH (16:00)
[2022-07-29] MEDS ORDERED: CENTRAL TPN IV SCH (16:00)
[2022-07-29] MEDS: LORazepam 1 MG TAB SL SCH (20:32)
[2022-07-29] MEDS: STOP CLINOLIPID SCH (22:29)
--- NOTE | 2022-07-29 22:46 | Hospitalist Progress Note ---
Date of Service July 29, 2022 Assessment & Plan (1) SBO (small bowel obstruction): Plan: Patient is a 76-year-old female who presented to the hospital for evaluation for nausea and vomiting. Patient found to have small bowel obstruction secondary to volvulus. Patient is currently comfortable and hemodynamically stabilized and has been admitted for bowel decompression and monitoring for resolution of symptoms. Patient with a small bowel obstruction secondary to adhesions and ileum. Surgical removal of adhesive bands without need for resection. Appendectomy performed. This was Dr. Garner 07/22/2022. Patient kept n.p.o. with supportive care surgery is managing IV fluids and advancement of diet Patient will get an additional dose of zofran, will try to limit opiates. placed on schedule dose of tylenol. Patient has a large BM on 07/26 Obtained PICC line consent, order placed. Patient currently on TPN, as she is tolerating more of a diet, will transition her off TPN. stopped dilaudid PRN, continue tylenol and placed on ketrolac PRN. NG tube has been removed. Patient tolerating clear diet. Patient continues to tolerate more food on 08/28 malnutrition 76 yo female presenting with a SBO. Conservative measures attempted but pt did not improve and required surgical intervention on 07/22. Pt with NGT postoperatively x 6 days and started on CL diet, now advanced to FL diet Treatment: General Repairer consult, Initially PPN then transitioned to TPN which is now being tapered off as pt is improving Risk Factor(s): SBO requiring surgical treatment (2) Bilateral malignant neoplasm of breast in female: Plan: - History noted in chart review. -Diagnosis of right-sided breast cancer in 2012 status postlumpectomy followed by radiation therapy and 5 years of tamoxifen therapy -Diagnosis of left breast malignancy in July 2020. Status post partial mastectomy in 09/05/2020 with negative sentinel lymph node biopsy. Radiation therapy completed 11/20/2020. -Since June 2021 has been on anastrozole for suppression therapy. Plan DVT prophylaxis: Lovenox CODE STATUS: Full code Admission and Anticipated Discharge Date Admission Date: July 19, 2022 Subjective 76 yo female reports feeling better. Her nausea is under control. Review of Systems Review of Systems: All systems reviewed & are unremarkable except as noted in HPI & below Physical Exam Physical Exam: abdominal exam continues with hypoactive bowel sounds soft and non tender Results & Data Results & Data Vital Signs (Past 12 Hours) Vital Signs Temp Pulse Resp BP Pulse Ox O2 Del Method 07/29/22 20:46 37 C 86 16 148/83 H 97 Room Air 07/29/22 15:12 37.1 C 93 H 16 166/75 H 97 Room Air PG Care Time/CCT Total # of Minutes Spent Total Time Spent with Patient: Total time spent is greater than 50% in coordination of care (as documented) at patient's floor/unit and/or counseling patient: Coding Level of Care Code 62775 SUB INP/OBS CARE 2/35MIN Diagnoses SBO (small bowel obstruction) K56.609 Bilateral malignant neoplasm of breast in female C50.911; C50.912
[2022-07-30] MEDS: INSULIN ASPART PER UNIT CHARGE SC SCH ×4 (00:24→18:15)
[2022-07-30] MEDS: SENNOSIDES 8.8 MG/5 ML UDC PO SCH ×2 (07:31→20:04)
[2022-07-30] MEDS: FLUTICASONE/VILANTEROL 100/25MCG 14 PUFFS/INHALER INH SCH (07:31)
[2022-07-30] MEDS: ENOXAPARIN INJ 40 MG/0.4 ML SYR SQ SCH (07:31)
[2022-07-30] MEDS: SENNA 8.6 MG TAB PO SCH ×2 (07:32→20:04)
--- NOTE | 2022-07-30 07:45 | Surgery Progress Note ---
Date of Service July 30, 2022 Assessment & Plan (1) Hx of exploratory laparotomy: Plan: Patient's vital signs are stable She ambulated 250 feet with a walker yesterday Encouraged ambulation today in the hallway Somewhat loose bowel movements, GI function not yet quite normal and do not suspected to return for 2 to 4 weeks In a normal way Continue TPN today, stop normal saline, advance diet to low fiber We will give her a dose of MiraLAX today She does want to go home and would consider tomorrow depending on how she does She seems to be drinking very well-without significant pain or nausea Admission and Anticipated Discharge Date Admission Date: July 19, 2022 Results & Data Vital Signs (Past 12 Hours) Vital Signs Temp Pulse Resp BP Pulse Ox O2 Del Method 07/29/22 20:46 37 C 86 16 148/83 H 97 Room Air PG Care Time/CCT Total # of Minutes Spent Total Time Spent with Patient: Total time spent is greater than 50% in coordination of care (as documented) at patient's floor/unit and/or counseling patient: Coding Level of Care Code 53711 Post Operative Follow-Up Diagnoses Hx of exploratory laparotomy Z98.890
[2022-07-30] MEDS: POLYETHYLENE (MIRALAX) 17 GM PACK PO SCH (08:44)
[2022-07-30] MEDS: PANTOprazole 40 MG in SYRINGE 0 ML IV SCH (10:48)
[2022-07-30] MEDS: ACETAMINOPHEN 325 MG TAB PO SCH ×3 (10:48→22:41)
[2022-07-30] MEDS ORDERED: CENTRAL TPN IV SCH (16:00)
[2022-07-30] MEDS ORDERED: [UNRECOGNIZED DRUG - OTHER] IV SCH (16:00)
[2022-07-30] MEDS ORDERED: CLINOLIPID 20% IV FAT EMULSION 250 ML IV SCH (16:00)
[2022-07-30] MEDS: LORazepam 1 MG TAB SL SCH (20:04)
[2022-07-30 20:20] VITALS: O2SAT 97
[2022-07-30] MEDS: STOP CLINOLIPID SCH (21:08)
--- NOTE | 2022-07-30 23:33 | Hospitalist Progress Note ---
Date of Service July 30, 2022 Assessment & Plan (1) SBO (small bowel obstruction): Plan: Patient is a 76-year-old female who presented to the hospital for evaluation for nausea and vomiting. Patient found to have small bowel obstruction secondary to volvulus. Patient is currently comfortable and hemodynamically stabilized and has been admitted for bowel decompression and monitoring for resolution of symptoms. Patient with a small bowel obstruction secondary to adhesions and ileum. Surgical removal of adhesive bands without need for resection. Appendectomy performed. This was Dr. Garner 07/22/2022. Patient kept n.p.o. with supportive care surgery is managing IV fluids and advancement of diet Patient will get an additional dose of zofran, will try to limit opiates. placed on schedule dose of tylenol. Patient has a large BM on 07/26 Obtained PICC line consent, order placed. Patient currently on TPN, as she is tolerating more of a diet, will transition her off TPN. stopped dilaudid PRN, continue tylenol and placed on ketrolac PRN. NG tube has been removed. Patient tolerating clear diet. Patient continues to tolerate more food on 08/28 diet advanced on 08/29 malnutrition 76 yo female presenting with a SBO. Conservative measures attempted but pt did not improve and required surgical intervention on 07/22. Pt with NGT postoperatively x 6 days and started on CL diet, now advanced to [place] diet Treatment: Gear Design Engineer consult, Initially PPN then transitioned to TPN which is now being tapered off as pt is improving Risk Factor(s): SBO requiring surgical treatment (2) Bilateral malignant neoplasm of breast in female: Plan: - History noted in chart review. -Diagnosis of right-sided breast cancer in 2012 status postlumpectomy followed by radiation therapy and 5 years of tamoxifen therapy -Diagnosis of left breast malignancy in July 2020. Status post partial mastectomy in 09/05/2020 with negative sentinel lymph node biopsy. Radiation the rapy completed 11/20/2020. -Since June 2021 has been on anastrozole for suppression therapy. Plan DVT prophylaxis: Lovenox CODE STATUS: Full code Admission and Anticipated Discharge Date Admission Date: July 19, 2022 Subjective 76 yo female reports feeling better. Patient reports having a large BM. Patient reports tolerating her diet. Review of Systems Review of Systems: All systems reviewed & are unremarkable except as noted in HPI & below Physical Exam Physical Exam: abdominal exam continues with hypoactive bowel sounds soft and non tender Results & Data Results & Data Vital Signs (Past 12 Hours) Vital Signs Temp Pulse Resp BP Pulse Ox O2 Del Method 07/30/22 20:19 36.8 C 87 16 129/70 97 Room Air 07/30/22 14:55 36.3 C L 94 H 16 126/74 99 Room Air PG Care Time/CCT Total # of Minutes Spent Total Time Spent with Patient: Total time spent is greater than 50% in coordination of care (as documented) at patient's floor/unit and/or counseling patient: Coding Level of Care Code 14015 SUB INP/OBS CARE 2/35MIN Diagnoses SBO (small bowel obstruction) K56.609 Bilateral malignant neoplasm of breast in female C50.911; C50.912
[2022-07-31] MEDS: INSULIN ASPART PER UNIT CHARGE SC SCH ×3 (00:07→12:34)
[2022-07-31] MEDS: ACETAMINOPHEN 325 MG TAB PO SCH ×2 (06:06→12:03)
[2022-07-31 07:42] VITALS: BP 116/78; PULSE 85; TEMP 97.5
[2022-07-31 09:13] LABS: Magnesium 2.2 mg/dl (1.7-2.4); Potassium 4.5 mmol/L (3.5-5.1)
[2022-07-31] MEDS: SENNOSIDES 8.8 MG/5 ML UDC PO SCH (09:13)
[2022-07-31] MEDS: SENNA 8.6 MG TAB PO SCH (09:13)
[2022-07-31] MEDS: FLUTICASONE/VILANTEROL 100/25MCG 14 PUFFS/INHALER INH SCH (09:14)
[2022-07-31] MEDS: ENOXAPARIN INJ 40 MG/0.4 ML SYR SQ SCH (09:14)
[2022-07-31] MEDS: POLYETHYLENE (MIRALAX) 17 GM PACK PO SCH (09:14)
--- NOTE | 2022-07-31 09:14 | Surgery Progress Note ---
Date of Service July 31, 2022 Assessment & Plan (1) Hx of exploratory laparotomy: Plan: She seems to be doing well Bowels are moving-we will not continue the stool softeners She can have diet as tolerated although should be low fiber for 1 to 2 weeks We will see in the office next week for some staple removal Okay for discharge home today if okay with the medical team Admission and Anticipated Discharge Date Admission Date: July 19, 2022 Results & Data Vital Signs (Past 12 Hours) Vital Signs Temp Pulse Resp BP Pulse Ox O2 Del Method 07/31/22 07:41 36.4 C L 85 16 116/78 97 Room Air PG Care Time/CCT Total # of Minutes Spent Total Time Spent with Patient: Total time spent is greater than 50% in coordination of care (as documented) at patient's floor/unit and/or counseling patient: Coding Level of Care Code 76556 Post Operative Follow-Up Diagnoses Hx of exploratory laparotomy Z98.890
[2022-07-31 09:18] LABS: Creatinine Clr Calc Pharmacy 78.1 ml/min; Est GFR (African American) 110.5 ml/min; Est GFR (Non-African American) 95.3 ml/min; Phosphorus 4.2 mg/dl (2.5-4.9)
--- NOTE | 2022-07-31 11:37 | Discharge Summary ---
Date of Service July 31, 2022 Admission HPI Per Admitting Provider Patient is a 76-year-old female who presented to the hospital for evaluation for nausea and vomiting. Apparently patient had sudden onset of nausea and vomiting at approximately 4 PM on 07/18/2022 after eating at [employer] for lunch. She was in normal health prior to this. She has had multiple episodes of vomiting since this started. No history of anything like this happening before. She has some recent dysphagia that had been evaluated by an EGD about a week ago that was only remarkable for gastritis but was otherwise normal. No hematemesis. Denies any nausea, vomiting, shortness of breath, chest pain, or headache. Currently, after receiving pain medication and nausea medication, patient feeling much better and is pain-free. Denies any complaints at this time. ED course: Patient was brought back to the ED and evaluated by one of our providers. Lab work was significant for a negative white blood cell count, and anion gap of 17, glucose of 170, lactate of 2.8, and patient is COVID-negative. CT of the abdomen and pelvis demonstrated a small bowel obstruction with dilated fluid-filled small bowel loops with transition zone in the right upper quadrant secondary to a small bowel volvulus. For this reason, the on-call general surgeon, Dr. Julio Garner, was consulted and recommended admission and they would see the patient in the morning. NG tube was placed by nursing for decompression and confirmed with KUB. The hospitalist service was then consulted for admission and medication management. Principal Diagnosis small bowel obstruction Discharge Exam abdominal exam: soft non tender, +BS Discharge Data Allergies Allergy/AdvReac Type Severity Reaction Status Date / Time benzonatate Allergy Severe Difficulty Verified 07/19/22 02:50 swallowing phenylephrine Allergy Mild Nausea Verified 07/19/22 02:50 codeine [From Robitussin A-C] Allergy Unknown Unknown Verified 07/19/22 02:50 phenylpropanolamine Allergy Unknown Unknown Verified 07/19/22 02:50 [From Entex LA] house dust Allergy Unknown Verified 07/19/22 02:50 mold Allergy Unknown Verified 07/19/22 02:50 doxycycline AdvReac Mild GI SYMPTOMS Verified 07/19/22 02:50 guaifenesin AdvReac Mild GI SYMPTOMS Verified 07/19/22 02:50 hydrocodone AdvReac Mild GI SYMPTOMS Verified 07/19/22 02:50 Consultations 07/19/22 01:51 ED Decision to Admit Stat 07/19/22 02:12 Consult General Surgery Routine Procedures Performed Operation Date: 07/22/22 07:50 Actual Procedures s Exploratory Laparotomy(Not Applicable) - Julio Garner MD, FACS p Appendectomy(Not Applicable) - Julio Garner MD, FACS Ordered Studies 07/18/22 22:44 CT abd pelvis IV con only Stat Hospital Course (1) SBO (small bowel obstruction): Patient is a 76-year-old female who presented to the hospital for evaluation for nausea and vomiting. Patient found to have small bowel obstruction secondary to volvulus. Patient is currently comfortable and hemodynamically stabilized and has been admitted for bowel decompression and monitoring for resolution of symptoms. Patient with a small bowel obstruction secondary to adhesions and ileum. Surgical removal of adhesive bands without need for resection. Appendectomy performed. This was Dr. Garner 07/22/2022. Patient kept n.p.o. with supportive care surgery is managing IV fluids and advancement of diet Patient required PPN and this was transitioned to TPN (through a PICC line) to maintain nutritional support until she was able to tolerate a diet. Narcotics were taperted off and patient was placed on round the clock tylenol. Patient's regained bowel function and had a BM on 07/26, this improved each day. Her NG tube was clamped and then removed, her diet was slowly advanced and patient was able to ambulate the halls. Patient will be discharged on 07/31. Discharge instructions noted below. malnutrition 76 yo female presenting with a SBO. Conservative measures attempted but pt did not improve and required surgical intervention on 07/22. 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 -Diagnosis of right-sided breast cancer in 2012 status postlumpectomy followed by radiation therapy and 5 years of tamoxifen therapy -Diagnosis of left breast malignancy in July 2020. Status post partial mastectomy in 09/05/2020 with negative sentinel lymph node biopsy. Radiation therapy completed 11/20/2020. -Since June 2021 has been on anastrozole for suppression therapy. Plan DVT prophylaxis: Lovenox CODE STATUS: Full code Total Time Total Time Spent Total Time Spent (In Minutes): 32 Discharge Plan Discharge Items Patient Disposition: Home - Home Health Services Reason For Visit: N/V Discharge Diagnosis: exploratory laparotomy, lysis of adhesions Activity: Per Instructions section Activity Comment: light activity for 4 weeks Lifting: No more than 10 pounds Bathing Comment: may shower; no soaking in tubs/pools x 2 weeks Sexual Activity: When tolerated Exercise/Sports: Wait until after follow-up appointment Exercise Comment: wait 4 weeks Driving/Machine Use: no driving while taking any narcotics for pain Non-emergency contact: Primary Care Provider Call non-emergency contact if: you have any medication questions, your pain is unusual for you, you have a fever, your temperature is above 101.5, your wound has increased redness, your wound has increased drainage and your wound pain has increased Follow-up/Referrals: Deangelo Faustin MD [Primary Care Provider] - 08/09/22 1:00 pm (APPOINTMENT WITH [facility]) Julio Garner MD, FACS [Physician] - 08/07/22 10:15 am Diet: Low Fiber Addtl Attending Provider Instructions: SPECIAL CARE INSTRUCTIONS: * Cover incisions and change daily for comfort/drainage. * May use ibuprofen for pain as tolerated. * Expect some swelling and bruising. Call your doctor if: * Temperature above 101 degrees * Pain not relieved by pain medicine ordered * There is increased drainage or redness from any incision * You have any unanswered questions or concerns [phone]. FOLLOW UP VISIT: If not already scheduled, please call the office for a follow-up visit. For next weeksome staple removal OFFICE PHONE NUMBER: Dr. Garner Office Pending Studies at Discharge: No Stand-Alone Forms: My [employer], Smoking Cessation Medications and DC Order Prescriptions: Continued triamcinolone acetonide 0.1 % cream 1 applic TOP DAILY PRN (Reason: dermatitis) Qty: 30 1RF pantoprazole 40 mg tablet,delayed release (DR/EC) 40 mg PO BID Qty: 60 5RF albuterol sulfate 90 mcg/actuation HFA aerosol inhaler 2 puff inhalation Q6H PRN (Reason: Shortness Of Breath Or Wheezing) 90 Days Qty: 3 3RF budesonide-formoterol [Symbicort] 160-4.5 mcg/actuation HFA aerosol inhaler 2 puff inhalation BID Qty: 3 3RF Rx Instructions: WITH A RINSE OF MOUTH AFTERWARDS. ipratropium bromide 42 mcg (0.06 %) spray,non-aerosol 2 spray INTRANASAL BID 90 Days Qty: 3 3RF fluocinonide 0.05 % gel 1 applic topical BID PRN (Reason: MOUTH ULCERS) cyanocobalamin (vitamin B-12) 1,000 mcg capsule 1,000 mcg PO QAM gabapentin 300 mg capsule 300 mg PO HS Qty: 90 3RF anastrozole 1 mg tablet 1 mg PO QPM chlorpheniramine-dextromethorp 4-30 mg tablet 2 - 3 tab PO Q6H PRN (Reason: NASAL DRIP) Discharge Orders: Discharge Order (Routine); Ordered 07/31/22 Ordered By: Julio Garner Admission Data Admit Date/Time: 07/19/22 02:29 Attending Provider: Sander Guthrie Admit Provider: Norris Saldana Primary Care Provider: Deangelo Faustin Other Providers: Brendan Burton ; Juilo Garner ; [facility] Coding Level of Care Code 65846 INP/OBS DISCH >30 MIN Diagnoses SBO (small bowel obstruction) K56.609 Bilateral malignant neoplasm of breast in female C50.911; C50.912
[2022-07-31] MEDS: PANTOprazole 40 MG in SYRINGE 0 ML IV SCH (11:45)
== END 2022-07-31 13:36 | disposition home health service (06) | DRG 336 ==
LOC: ED 22:29 → SUATTDRO 07-19 02:29 → 3N 07-19 02:29